=== PATIENT | male | born 1945 | race Two or more races ===

== ENCOUNTER → 2024-05-29 | Outpatient (CLI) | payer MEDICAID ==
[2024-05-29 13:21] LABS: Urine Bacteria None Seen /hpf (None Seen)
[2024-05-29 13:29] LABS: Urine Blood Negative /uL (Negative); Urine Clarity Clear (Clear); Urine Color Colorless (Yellow); Urine Hyaline Cast FEW /lpf (0 - 2); Urine Protein, UAD Negative (Negative); Urine Specific Gravity 1.007 (1.001-1.035); Urine Urobilinogen Normal (Negative); Urine WBC 1 /hpf (0 - 3)
[2024-05-29 13:30] LABS: Basophils # (auto) 0 10 ^3/uL (0-0.2); Basophils % (auto) 0.3 % (0.0-2.0); Eosinophils # (auto) 0.3 10 ^3/uL (0-0.8); Eosinophils % (auto) 3.6 % (0.0-7.0); Hematocrit 34.7 % (41.0-53.0); Hemoglobin 11.5 g/dL (13.5-17.5); Lymphocytes # (auto) 1.2 10 ^3/uL (0.4-5.4); Lymphocytes % (auto) 13.8 % (10.0-50.0); Mean Corpuscular Hemoglobin 28.4 pg (28.0-32.0); Mean Corpuscular Hgb Conc. 33.1 g/dL (32.0-36.0); Monocytes # (auto) 0.6 10 ^3/uL (0-1.3); Monocytes % (auto) 6.7 % (0.0-12.0); Neutrophils # (auto) 6.5 10 ^3/uL (1.6-8.6); Neutrophils % (auto) 75.6 % (37.0-80.0); Platelet Count (auto) 191 10^3/uL (140-450); Red Blood Cells 4.04 10^6/uL (4.5-5.90); Red Cell Distribution Width 18.1 % (11.8-14.3); White Blood Cell 8.5 10^3/uL (4.4-10.8)
[2024-05-29 14:12] LABS: Alanine Aminotransferase 17 U/L (7-40); Albumin 4.4 g/dL (3.2-4.8); Alkaline Phosphatase 148 U/L (46-116); Anion Gap 7 (5-15); Aspartate Aminotransferase 10 U/L (13-40); BUN/Creatinine Ratio 15.4 (10.0-20.0); Bilirubin, Total 1.2 mg/dL (0.2-1.0); Blood Urea Nitrogen 21 mg/dL (9-23); Calcium 10.1 mg/dL (8.7-10.4); Carbon Dioxide 24 mmol/L (20-31); Chloride 112 mmol/L (98-107); Cholesterol 91 mg/dL (< 200); Glucose 105 mg/dL (74-106); HDL Cholesterol 45 mg/dL (40-59); LDL Cholesterol 32 mg/dL (< 100); Potassium 4.1 mmol/L (3.5-5.1); Sodium 143 mmol/L (136-145); Total Protein 7.3 g/dL (5.7-8.2); Triglycerides 50 mg/dL (< 150)
[2024-05-29 14:16] LABS: Folate (Folic Acid) 17.56 ng/mL (>5.38)
[2024-05-29 14:30] LABS: Uric Acid 8.5 mg/dL (3.7-9.2)
== END | disposition home or self-care (01) ==
LOC: LAB 13:09
PROVIDERS: ATTEND Internal Medicine
DX: Z00.00 Encounter for general adult medical examination without abnormal findings (principal)
CPT/HCPCS: 36415; 80053; 80061; 81001; 82306; 82607; 82746; 84443; 84550; 85025; 87086

== ENCOUNTER 2024-06-16 17:21 | Inpatient (IN) | payer MEDICAID ==
[~2024-06-16] VITALS: Ht 175.3 cm; Wt 112.4 kg
[~2024-06-16 17:21] MED LIST: AMLO1TAB23 PO; APIX5TAB PO; ATOR80TA PO; FURO40TA4 PO; LOSA-535 PO; METF-372 PO; METO-289 PO; MIRT1TAB38 PO; TAMS0.4C39 PO; VALS40TA2 PO
[2024-06-16 17:30] VITALS: PULSE 65; RESP 24; O2SAT 96
[2024-06-16] MEDS: IPRATROPIUM BROM 0.5 MG/2.5ML INH SOL NEB ONE (17:49)
[2024-06-16] MEDS: ALBUTEROL SULF 2.5 MG/0.5ML(0.5%) NEB SOLN NEB ONE (17:50)
[2024-06-16] MEDS: NITROGLYCERIN 2% OINT 1GM PKG TD ONE (17:55)
[2024-06-16] MEDS: FUROSEMIDE 40 MG/4 ML VIAL IV ONE (17:55)
--- NOTE | 2024-06-16 17:55 | ED.PDOC ---
SOB-HPI HPI Comments 78 y.o male with PMH of DM and CHF, presents to the ED via EMS for a chief complaint of SOB and a productive cough. EMS reported on scene patient was saturating at 70% room air, was placed on a nonrebreather increasing saturation to 88%. Patient was then placed on CPAP 40% and SPO2 read 92-95%. Patient also complains of ongoing bilateral hip pain for unknown amount of time. 2+ pitting edema noted. No chest pain, nausea, vomiting, diarrhea, abdominal pain fever or chils reported. Chief Complaint: Shortness of Breath Time Seen by MD: 17:32 Reviewed notes: Nurses Notes, Noodle Catal[employer] Maker Notes, Medications, Allergies Information Source: Patient, Emergency Med Personnel Mode of Arrival: EMS Severity: Moderate Timing: Hours Duration: Since onset Context: At Rest PE Risk Factors: None Prehospital treatment: 12 Lead EKG, Boots And Shoes Supervisor, C-Pap, Oxygen Modifying Factors: Nothing Associated Signs and Symptoms: Cough If cough with SOB: Productive Past Medical History PAST MEDICAL HISTORY: CAD, CHF, DM Surgical History: Unobtainable Family History Family History: Reviewed,noncontributory to illness Social History Smoker: Non-Smoker Alcohol: Denies ETOH Use Drugs: Denies Drug Use Lives In: Home Constitutional: denies: chills, diaphoresis, fatigue, fever, malaise, sweats, weakness, others EENTM: denies: blurred vision, double vision, ear bleeding, ear discharge, ear drainage, ear pain, ear ringing, eye pain, eye redness, hearing loss, mouth pain, mouth swelling, nasal discharge, nose bleeding, nose congestion, nose pain, photophobia, tearing, throat pain, throat swelling, voice changes, others Respiratory: reports: cough, SOB at rest, shortness of breath, SOB with excertion; denies: hemoptysis, orthopnea, stridor, wheezing, others Cardiovascular: denies: chest pain, dizzy spells, diaphoresis, Dyspnea on exertion, edema, irregular heart beat, left arm pain, lightheadedness, palpitations, PND, syncope, others Gastrointestinal: denies: abdomen distended, abdominal pain, blood streaked bowels, constipated, diarrhea, dysphagia, difficulty swallowing, hematemesis, melena, nausea, poor appetite, poor fluid intake, rectal bleeding, rectal pain, vomiting, others Genitourinary: denies: burning, dysuria, flank pain, frequency, hematuria, incontinence, penile discharge, penile sore, pain, testicle pain, testicle swe lling, urgency, others Neurological: denies: dizziness, fainting, headache, left sided numbness, left sided weakness, numbness, paresthesia, pre-existing deficit, right sided numbness, right sided weakness, seizure, speech problems, tingling, tremors, weakness, others Musculoskeletal: reports: others (Bilateral hip pain ); denies: back pain, gout, joint pain, joint swelling, muscle pain, muscle stiffness, neck pain Integumetry: denies: bruises, change in color, change in hair/nails, dryness, laceration, lesions, lumps, rash, wounds, others Allergic/Immunocompromised: denies: Difficulty Healing, Frequent Infections, Hives, Itching, others Hematologic/Lymphatic: denies: anemia, blood clots, easy bleeding, easy bruising, swollen glands, others Endocrine: denies: excessive hunger, excessive sweating, excessive thirst, excessive urination, flushing, intolerance to cold, intolerance to heat, unexplained weight gain, unexplained weight loss, others Psychiatric: denies: anxiety, bipolar disorder, depression, hopeless, panic disorder, schizophrenia, sleepless, suicidal, others All Other Systems: Reviewed and Negative Physical Exam General Appearance: Moderate Distress HEENT: Normal ENT Inspection Neck: Full Range of Motion, Normal Inspection Respiratory: Accessory Muscle Use, Decreased Breath Sounds, Rales Cardiovascular: No JVD, Regular Rate/Rhythm Breast Exam: Deferred Gastrointestinal: Non Tender, Soft Genitalia: Deferred Pelvic: Deferred Rectal: Deferred Extremities: Calf tenderness, Leg edema, Normal range of motion, Pedal edema Neurologic: Alert, No Motor Deficits, Normal Affect, Normal Mood, No Sensory Deficits Cerebellar Function: NOT DONE Reflexes: NOT DONE Skin: Dry, Normal Color, Warm Lymphatic: NOT DONE EKG EKG : Comments Atrial flutter, ventricular rate 75, QRS prolonged at 153, QTC prolonged at 517, right bundle-branch block, left axis deviation, possible old inferior infarct, anteroseptal T inversion other nonspecific T changes Was a procedure done? Was a procedure done?: No Differential Dx Differential Diagnosis: Asthma, Bronchitis, CHF, COPD, Hyperventilation, Pneumonia, Pulmonary Embolism, Respiratory Distress, URI, Other (Arrhythmia, NE, among) X-Ray, Labs, Meds, VS Vital Signs Date Time Temp Pulse Resp B/P (MAP) Pulse Ox O2 Delivery O2 Flow Rate FiO2 06/16/24 20:43 78 20 130/84 06/16/24 19:51 74 141/71 Facial BiPAP Mask 40 06/16/24 17:55 140/75 06/16/24 17:50 72 140/75 Facial BiPAP Mask 40 06/16/24 17:30 65 24 96 Mechanical Ventilator+ 40 40 06/16/24 17:30 97.9 65 24 140/75 (96) 96 97.9 06/16/24 17:28 75 06/16/24 17:27 97.9 82 22 140/75 (96) 89 Lab Test 06/16/24 19:04 06/16/24 19:00 06/16/24 17:50 Range/Units Troponin I High Sensitivity 20 17 </=54 ng/L Urine Color Colorless Yellow Urine Clarity Clear Clear Urine pH 6.5 5.0-9.0 Urine Specific [place] 1.007 1.001-1.035 Urine Protein Negative Negative Urine Ketones Negative Negative Urine Blood Negative Negative /uL Urine Nitrite Negative Negative Urine Bilirubin Negative Negative Urine Urobilinogen Normal Negative mg/dL Urine Leukocyte Esterase Negative Negative /uL Urine RBC 1 0 - 3 /hpf Urine WBC 1 0 - 3 /hpf Urine Squamous Epithelial Cells Few <5 /hpf Urine Bacteria None seen None Seen /hpf Urine Glucose Normal Normal mg/dL Blood Gas Specimen Type Arterial Blood Gas Sample Site Right radial Blood Gas Patient Temperature 37.0 Arterial Blood Date Drawn [id number] Arterial Blood pH 7.431 7.350-7.450 Arterial Blood Partial Pressure CO2 36.7 35.0-48.0 mmHg Arterial Blood Partial Pressure O2 66.2 L 83.0-108.0 mmHg Arterial Blood HCO3 23.9 21.0-28.0 mmol/L Arterial Blood Oxygen Saturation 92.1 L 94.0-98.0 % Arterial Blood Base Excess -0.1 -2.0-3.0 mmol/L Arterial Blood Oxyhemoglobin 90.5 L 94.0-98.0 % Arterial Blood Carboxyhemoglobin 1.1 0.5-1.5 % Arterial Blood Methemoglobin 0.6 0.0-1.5 % [place] Test Modified Blood Gas Total Hemoglobin 11.70 L 13.5-17.5 g/dL Blood Gas Set Respiration Rate 12.0 Blood Gas Modality Mask - bipap Blood Gas Spontaneous Rate 32 FiO2 % 40.0 Blood Gas Spontaneous Tidal Volume 536 Blood Gas EPAP 7 Blood Gas IPAP 14 White Blood Count 8.7 4.4-10.8 10^3/uL Red Blood Count 4.14 L 4.5-5.90 10^6/uL Hemoglobin 11.7 L 13.5-17.5 g/dL Hematocrit 35.7 L 41.0-53.0 % Mean Corpuscular Volume 86.2 80.0-100.0 fL Mean Corpuscular Hemoglobin 28.3 28.0-32.0 pg Mean Corpuscular Hemoglobin Concent 32.8 32.0-36.0 g/dL Red Cell Distribution Width 17.9 H 11.8-14.3 % Platelet Count 176 140-450 10^3/uL Mean Platelet Volume 8.5 6.9-10.8 fL Neutrophils (%) (Auto) 77.7 37.0-80.0 % Lymphocytes (%) (Auto) 12.6 10.0-50.0 % Monocytes (%) (Auto) 7.0 0.0-12.0 % Eosinophils (%) (Auto) 1.9 0.0-7.0 % Basophils (%) (Auto) 0.8 0.0-2.0 % Neutrophils # (Auto) 6.8 1.6-8.6 10 ^3/uL Lymphocytes # (Auto) 1.1 0.4-5.4 10 ^3/uL Monocytes # (Auto) 0.6 0-1.3 10 ^3/uL Eosinophils # (Auto) 0.2 0-0.8 10 ^3/uL Basophils # (Auto) 0.1 0-0.2 10 ^3/uL Nucleated Red Blood Cells 0.0 % Sodium Level 144 136-145 mmol/L Potassium Level 4.0 3.5-5.1 mmol/L Chloride Level 114 H 98-107 mmol/L Carbon Dioxide Level 24 20-31 mmol/L Anion Gap 6 5-15 Blood Urea Nitrogen 18 9-23 mg/dL Creatinine 1.18 0.700-1.30 mg/dL Glomerular Filtration Rate Calc 64 >90 mL/min BUN/Creatinine Ratio 15.3 10.0-20.0 Serum Glucose 108 H 74-106 mg/dL Calcium Level 10.1 8.7-10.4 mg/dL B-Type Natriuretic Peptide 591.99 0-100 pg/mL Current Medications Medications (Trade) Dose Ordered Sig/Melecio Route Start Time Stop Time Status Last Admin Albuterol (Ventolin Medneb) 5 mg ONCE ONCE NEB 06/16/24 17:45 06/16/24 17:46 DC 06/16/24 17:50 Ipratropium [place] (Atrovent Medneb) 0.5 mg ONCE ONCE NEB 06/16/24 17:45 06/16/24 17:46 DC 06/16/24 17:49 Furosemide (Lasix Injection) 40 mg ONCE ONCE IV 06/16/24 17:45 06/16/24 17:46 DC 06/16/24 17:55 Morphine Sulfate 4 mg ONCE ONCE IV 06/16/24 20:45 06/16/24 20:46 DC 06/16/24 20:43 Ondansetron HCl (Zofran) 4 mg ONCE ONCE IV 06/16/24 20:45 06/16/24 20:46 DC 06/16/24 20:42 HISTORY: pain and edema COMPARISON: None TECHNIQUE: Duplex Doppler evaluation of the deep venous system of the lower extremity from the common femoral veins, superficial femoral vein, great saphenous vein, deep femoral vein, popliteal vein, and calf veins, including color Doppler and spectral/pulsed waveform analysis, was performed. FINDINGS: Right: - Common femoral vein: Compressible - Deep femoral vein: Compressible - Femoral vein: Compressible - Popliteal vein: Compressible - Posterior tibial vein: Waveforms present - Other: Normal appearing groin lymph node. Left: - Common femoral vein: Compressible - Deep femoral vein: Compressible - Femoral vein: Compressible - Popliteal vein: Compressible - Posterior tibial vein: Waveforms present - Other: Normal-appearing groin lymph node. IMPRESSION: 1. No right or left lower extremity deep venous thrombosis. T RADIOGRAPH Indication:sob Technique: Single frontal view of the chest was obtained COMPARISON: None FINDINGS: Lines and Tubes: None Lungs: Diffuse interstitial prominence and patchy increased density. Pleura: Possible small bilateral pleural effusions. No pneumothorax. Cardiomediastinal contours: Cardiomegaly. Bones: Unremarkable IMPRESSION: 1. Suggestion of diffuse interstitial and alveolar pulmonary edema. Can not exclude superimposed pneumonia. 2. Possible small bilateral pleural effusions. X-Ray, Labs, Meds, VS Comment 78-year-old male with a history of diabetes and CHF presenting with shortness breath requiring BiPAP Vitals remarkable for respiratory rate of 24 Exam remarkable for bilateral rales, accessory muscle use, respiratory distress, and 2+ pitting lower extremity edema EKG atrial flutter with ventricular rate 75, prolonged intervals, right bundle- branch block, anteroseptal T inversion Chest x-ray IMPRESSION: 1. Suggestion of diffuse interstitial and alveolar pulmonary edema. Can not exclude superimposed pneumonia. 2. Possible small bilateral pleural effusions. Bilateral lower extremity Doppler ultrasound negative for DVT CBC, basic metabolic panel, UA and 2 serial troponins unremarkable for any abnormality of acute significance BNP 591.99 Nitro paste was applied to the patient's chest wall by EMS prior to arrival. Patient was continued on BiPAP, and received the following in the ED: Albuterol 5 mg/Atrovent 0.5 mg nebulized, Lasix 40 mg IV, morphine 4 mg IV, Zofran 4 mg IV. On re-evaluation, dyspnea had improved, and vitals were stable. Plan is to admit the patient for going respiratory support, diuresis and Cardiology evaluation. Time of 1ST Reevaluation: 17:52 Reevaluation 1ST: Unchanged Time of 2ND Reevaluation: 21:07 Reevaluation 2ND: Improved Patient Education/Counseling: Diagnosis, Treatment, Prognosis Family Education/Counseling: No Family Present Departure 1 Departure Time of Disposition: 21:07 Impression: Primary Impression: CHF exacerbation Qualified Codes: I50.9 - Heart failure, unspecified Additional Impressions: Respiratory failure Qualified Codes: J96.91 - Respiratory failure, unspecified with hypoxia Atrial flutter Qualified Codes: I48.92 - Unspecified atrial flutter Disposition: ADMITTED INPATIENT Admit to: [facility] Condition: Guarded Critical Care Note Critical Care Time?: Yes (45 min-critical care time only) Critical care comment: Critical care time including multiple bedside re-evaluations, review of laboratory and imaging studies, and discussion of the case with the admitting provider. Patient is high risk for respiratory and/or hemodynamic decompensation. Stability Stability form required: No I personally scribed for TITA SCOTT MD ([facility]) on 06/16/24 at 17:55. Electronically submitted by Rula Lloyd ([facility]). I personally scribed for TITA SCOTT MD ([facility]) on 06/16/24 at 18:56. Electronically submitted by Rula Lloyd ([facility]). TITA SCOTT MD Jun 16, 2024 17:55
[2024-06-16 17:58] LABS: Basophils # (auto) 0.1 10 ^3/uL (0-0.2); Basophils % (auto) 0.8 % (0.0-2.0); Eosinophils # (auto) 0.2 10 ^3/uL (0-0.8); Eosinophils % (auto) 1.9 % (0.0-7.0); Hematocrit 35.7 % (41.0-53.0); Hemoglobin 11.7 g/dL (13.5-17.5); Lymphocytes # (auto) 1.1 10 ^3/uL (0.4-5.4); Lymphocytes % (auto) 12.6 % (10.0-50.0); Mean Corpuscular Hemoglobin 28.3 pg (28.0-32.0); Mean Corpuscular Hgb Conc. 32.8 g/dL (32.0-36.0); Mean Corpuscular Volume 86.2 fL (80.0-100.0); Monocytes # (auto) 0.6 10 ^3/uL (0-1.3); Neutrophils # (auto) 6.8 10 ^3/uL (1.6-8.6); Neutrophils % (auto) 77.7 % (37.0-80.0); Platelet Count (auto) 176 10^3/uL (140-450); Red Blood Cells 4.14 10^6/uL (4.5-5.90); Red Cell Distribution Width 17.9 % (11.8-14.3); White Blood Cell 8.7 10^3/uL (4.4-10.8)
[2024-06-16 18:06] LABS: Chloride 114 mmol/L (98-107); Sodium 144 mmol/L (136-145)
[2024-06-16 18:07] LABS: Anion Gap 6 (5-15); Carbon Dioxide 24 mmol/L (20-31)
[2024-06-16 18:08] LABS: Calcium 10.1 mg/dL (8.7-10.4)
[2024-06-16 18:12] LABS: BUN/Creatinine Ratio 15.3 (10.0-20.0); Blood Urea Nitrogen 18 mg/dL (9-23); Glucose 108 mg/dL (74-106)
--- NOTE | 2024-06-16 18:15 | DVH ---
CHEST RADIOGRAPH Indication:sob Technique: Single frontal view of the chest was obtained COMPARISON: None FINDINGS: Lines and Tubes: None Lungs: Diffuse interstitial prominence and patchy increased density. Pleura: Possible small bilateral pleural effusions. No pneumothorax. Cardiomediastinal contours: Cardiomegaly. Bones: Unremarkable IMPRESSION: 1. Suggestion of diffuse interstitial and alveolar pulmonary edema. Can not exclude superimposed pneu monia. 2. Possible small bilateral pleural effusions.
--- NOTE | 2024-06-16 18:40 | DVH ---
HISTORY: pain and edema COMPARISON: None TECHNIQUE: Duplex Doppler evaluation of the deep venous system of the lower extremity from the common femoral veins, superficial femoral vein, great saphenous vein, deep femoral vein, popliteal vein, an d calf veins, including color Doppler and spectral/pulsed waveform analysis, was performed. FINDINGS: Right: - Common femoral vein: Compressible - Deep femoral vein: Compressible - Femoral vein: Compressible - Popliteal vein: Compressible - Posterior tibial vein: Waveforms present - Other: Normal appearing groin lymph node. Left: - Common femoral vein: Compressible - Deep femoral vein: Compressible - Femoral vein: Compressible - Popliteal vein: Compressible - Posterior tibial vein: Waveforms present - Other: Normal-appearing groin lymph node. IMPRESSION: 1. No right or left lower extremity deep venous thrombosis.
[2024-06-16 19:07] LABS: Urine Bacteria None Seen /hpf (None Seen)
[2024-06-16 19:09] LABS: Base Excess -0.1 mmol/L (-2.0-3.0)
[2024-06-16 19:21] LABS: Urine Blood Negative /uL (Negative); Urine Clarity Clear (Clear); Urine Color Colorless (Yellow); Urine Protein, UAD Negative (Negative); Urine Specific Gravity 1.007 (1.001-1.035); Urine Urobilinogen Normal (Negative); Urine WBC 1 /hpf (0 - 3); Urine pH 6.5 (5.0-9.0)
[2024-06-16] MEDS: ONDANSETRON HCL 4 MG/2 ML VIAL IV ONE (20:42)
[2024-06-16] MEDS: MORPHINE SULFATE 4 MG/ML SYR/VIAL IV ONE (20:43)
[2024-06-16] MEDS ORDERED: DEXTROSE (50%) 50ML SYRG IV PRN (21:00)
[2024-06-16] MEDS ORDERED: DOCUSATE SOD 100 MG CAP PO PRN (21:00)
[2024-06-16] MEDS ORDERED: ONDANSETRON HCL 4 MG/2 ML VIAL IV PRN (21:00)
[2024-06-16] MEDS ORDERED: ACETAMINOPHEN 325 MG TAB PO PRN (21:00)
[2024-06-16] MEDS ORDERED: hydrALAZINE HCL 20 MG/ML VL IV PRN (21:00)
[2024-06-16 21:33] VITALS: BP 128/68; PULSE 57; RESP 37; TEMP 97.9; O2SAT 94
[2024-06-16 21:35] VITALS: BP 128/68; PULSE 69; O2SAT 94
[2024-06-16] MEDS: InsuLIN REG 1unit/0.01ml Soln (100units/ml) SC SCH (22:00)
[2024-06-16] MEDS: SODIUM CHLOR 0.9% PF (SALINE LOCK) 10ML VIAL/SYR IV SCH (22:08)
[2024-06-16] MEDS: ACCU-CHEK COMFORT CURVE STRIP VI SCH (22:16)
[2024-06-16] MEDS: ATORVASTATIN 20 MG TAB PO SCH (22:24)
[2024-06-16] MEDS: APIXABAN 5 MG TAB PO SCH (22:24)
[2024-06-16] MEDS: CARVEDILOL 12.5 MG TAB PO SCH (22:24)
--- NOTE | 2024-06-16 23:07 | DVHHP2 ---
History of Present Illness Reason for Visit: Acute exacerbation of congestive heart failure History of Present Illness The patient is a 78-year-old male with past medical history of CHF, Coronary art ayleen disease, DM, hyperlipidemia and hypertension who presented to [facility] ED with complaint of shortness of breaths. Patient reports symptoms progressively get worse with bilateral hip pain, plus two pitting edema, productive cough, desaturating 70% room air, getting worse that prompted this visit. Patient was seen and evaluated in the ED and was placed on non-rebreather increasing O2 saturation to 88%, and was then placed CPAP and O2 saturation improved 92%. Laboratory data shows WBC 8.7, hemoglobin 11.7, hematocrit 35.7, platelets 176, sodium 144, potassium 4.0, BUN 18, creatinine 1.18, glucose 108, troponin 20, BNP 591.99. Chest x-ray revealing diffuse interstitial and alveolar pulmonary edema; can not exclude superimposed pneumonia; possible small bilateral pleural effusions. Patient was started on IV Lasix, please see medication orders section in the computer. On my assessment, patient denied chest pain, no headache, no dizziness, no diaphoresis, currently on CPAP, no nausea, no vomiting, no fever, no chills. Patient was admitted for further evaluation and medical management. Past Medical History CAD, CHF, DM, HTN, HLD. Past Surgical History Denies all surgeries Family History Reviewed, noncontributory to the management of this case. Past Social History The patient lives at home, denies smoking, alcohol or illicit drugs abuse. Review of Systems Constitutional: No: Fever, Chills, Sweats, Weakness, Malaise, Other Eyes: No: Pain, Vision change, Conjunctivae inflammation, Eyelid inflammation, Other, Redness ENT: No: Ear pain, Ear discharge, Nose pain, Nose discharge, Nose congestion, Mouth pain, Mouth swelling, Throat pain, Throat swelling, Other Respiratory: Cough, Shortness of breath, SOB with excertion, Other (SOB at rest); No: Dry, Wheezing, Hemoptysis, Pleuritic Pain, Sputum, Wheezing Cardiovascular: Other (Pitting edema); No: Chest Pain, Palpitations, Orthopnea, Paroxysmal Noc. Dyspnea, Edema, Lt Headedness Gastrointestinal: No: Nausea, Vomiting, Abdominal Pain, Diarrhea, Constipation, Melena, Hematochezia, Other Genitourinary: No Dysuria, No Frequency, No Incontinence, No Hematuria, No Retention, No Other Musculoskeletal: other (Bilateral hip pain); No: neck pain, shoulder pain, arm pain, back pain, hand pain, leg pain, foot pain Skin: No: Rash, Lesions, Jaundice, Bruising, Other Neurological: No: Weakness, Numbness, Incoordination, Change in speech, Confusion, Seizures, Other Allergies: Coded Allergies: NO KNOWN ALLERGIES (Unverified , 06/16/24) Medications Current Medications Medications Dose Ordered Sig/Melecio Route Start Time Stop Time Status Last Admin Dose Admin Albuterol 2.5 mg Q4HPRN PRN NEB 06/16/24 21:00 Ipratropium [place] 0.5 mg Q4HPRN PRN NEB 06/16/24 21:00 Furosemide 40 mg DAILY IV 06/17/24 10:00 Atorvastatin Calcium 20 mg HS PO 06/16/24 22:00 06/16/24 22:24 20 MG Hydralazine HCl 10 mg Q6HP PRN IV 06/16/24 21:00 Carvedilol 12.5 mg Q12HR PO 06/16/24 22:00 06/16/24 22:24 12.5 MG Apixaban 5 mg BID PO 06/16/24 22:00 06/16/24 22:24 5 MG Diagnostic Test (Pha) 1 strip ACHS 06/16/24 22:00 06/16/24 22:16 1 STRIP Insulin Human Regular ACHS SC 06/16/24 22:00 Dextrose 50 ml UD PRN IV 06/16/24 21:00 Sodium Chloride 10 ml Q8HR IV 06/16/24 22:00 06/16/24 22:08 10 ML Acetaminophen/ Hydrocodone Bitart 1 tab Q4HP PRN PO 06/16/24 21:00 Ondansetron HCl 4 mg Q4HP PRN IV 06/16/24 21:00 Docusate Sodium 100 mg BIDPRN PRN PO 06/16/24 21:00 Acetaminophen 650 mg Q6HP PRN PO 06/16/24 21:00 Exam Vital Signs Vital Signs Date Time Temp Pulse Resp B/P (MAP) Pulse Ox O2 Delivery O2 Flow Rate FiO2 06/16/24 22:24 68 116/68 06/16/24 21:20 19 06/16/24 19:51 Facial BiPAP Mask 40 06/16/24 17:30 96 06/16/24 17:30 97.9 97.9 General Appearance: Alert, Oriented X3, Cooperative, No acute distress HEENT: Atraumatic, PERRLA, EOMI, Mucous membr. moist/pink Respiratory: Normal air movement, Other (Diminished breath sounds) Cardiovascular: Regular rate, Normal S1, Normal S2 Abdominal: Normal bowel sounds, Soft, No tenderness, No hepatospenomegaly, No masses Extremities: No clubbing, No cyanosis, Normal pulses, No tenderness/swelling, Other (Pitting edema) Skin: No rashes, No breakdown, No significant lesion Neuro: Normal speech, Normal tone, Sensation intact, Cranial nerves 3-12 NL, Reflexes 2+, Other (Generalized weakness) Psych/Mental Status: Mental status NL, Mood NL Labs/Xrays Labs Test 06/16/24 22:14 06/16/24 21:34 06/16/24 19:00 06/16/24 17:50 Range/Units POC Glucose 87 70-106 mg/dl Troponin I High Sensitivity 22 </=54 ng/L Urine Color Colorless Yellow Urine Clarity Clear Clear Urine pH 6.5 5.0-9.0 Urine Specific [place] 1.007 1.001-1.035 Urine Protein Negative Negative Urine Ketones Negative Negative Urine Blood Negative Negative /uL Urine Nitrite Negative Negative Urine Bilirubin Negative Negative Urine Urobilinogen Normal Negative mg/dL Urine Leukocyte Esterase Negative Negative /uL Urine RBC 1 0 - 3 /hpf Urine WBC 1 0 - 3 /hpf Urine Squamous Epithelial Cells Few <5 /hpf Urine Bacteria None seen None Seen /hpf Urine Glucose Normal Normal mg/dL Blood Gas Specimen Type Arterial Blood Gas Sample Site Right radial Blood Gas Patient Temperature 37.0 Arterial Blood Date Drawn [id number] Arterial Blood pH 7.431 7.350-7.450 Arterial Blood Partial Pressure CO2 36.7 35.0-48.0 mmHg Arterial Blood Partial Pressure O2 66.2 L 83.0-108.0 mmHg Arterial Blood HCO3 23.9 21.0-28.0 mmol/L Arterial Blood Oxygen Saturation 92.1 L 94.0-98.0 % Arterial Blood Base Excess -0.1 -2.0-3.0 mmol/L Arterial Blood Oxyhemoglobin 90.5 L 94.0-98.0 % Arterial Blood Carboxyhemoglobin 1.1 0.5-1.5 % Arterial Blood Methemoglobin 0.6 0.0-1.5 % [place] Test Modified Blood Gas Total Hemoglobin 11.70 L 13.5-17.5 g/dL Blood Gas Set Respiration Rate 12.0 Blood Gas Modality Mask - bipap Blood Gas Spontaneous Rate 32 FiO2 % 40.0 Blood Gas Spontaneous Tidal Volume 536 Blood Gas EPAP 7 Blood Gas IPAP 14 White Blood Count 8.7 4.4-10.8 10^3/uL Red Blood Count 4.14 L 4.5-5.90 10^6/uL Hemoglobin 11.7 L 13.5-17.5 g/dL Hematocrit 35.7 L 41.0-53.0 % Mean Corpuscular Volume 86.2 80.0-100.0 fL Mean Corpuscular Hemoglobin 28.3 28.0-32.0 pg Mean Corpuscular Hemoglobin Concent 32.8 32.0-36.0 g/dL Red Cell Distribution Width 17.9 H 11.8-14.3 % Platelet Count 176 140-450 10^3/uL Mean Platelet Volume 8.5 6.9-10.8 fL Neutrophils (%) (Auto) 77.7 37.0-80.0 % Lymphocytes (%) (Auto) 12.6 10.0-50.0 % Monocytes (%) (Auto) 7.0 0.0-12.0 % Eosinophils (%) (Auto) 1.9 0.0-7.0 % Basophils (%) (Auto) 0.8 0.0-2.0 % Neutrophils # (Auto) 6.8 1.6-8.6 10 ^3/uL Lymphocytes # (Auto) 1.1 0.4-5.4 10 ^3/uL Monocytes # (Auto) 0.6 0-1.3 10 ^3/uL Eosinophils # (Auto) 0.2 0-0.8 10 ^3/uL Basophils # (Auto) 0.1 0-0.2 10 ^3/uL Nucleated Red Blood Cells 0.0 % Sodium Level 144 136-145 mmol/L Potassium Level 4.0 3.5-5.1 mmol/L Chloride Level 114 H 98-107 mmol/L Carbon Dioxide Level 24 20-31 mmol/L Anion Gap 6 5-15 Blood Urea Nitrogen 18 9-23 mg/dL Creatinine 1.18 0.700-1.30 mg/dL Glomerular Filtration Rate Calc 64 >90 mL/min BUN/Creatinine Ratio 15.3 10.0-20.0 Serum Glucose 108 H 74-106 mg/dL Calcium Level 10.1 8.7-10.4 mg/dL B-Type Natriuretic Peptide 591.99 0-100 pg/mL PATIENT: MALU AGEE JR ACCT: [id number] UNIT: [id number] : 1945 LOC: ER ROOM / BED: / AGE / SEX: 78 / M ADM STATUS: REG ER SERVICE 0708 ORDERING PHYSICIAN: TITA CSOTT MD PROCEDURE(s): BLDVT - BiLat Lower DVT REASON: pain and edema ORDER NUMBER(s): [id number], ACCESSION NUMBER(s): [id number] HISTORY: pain and edema COMPARISON: None TECHNIQUE: Duplex Doppler evaluation of the deep venous system of the lower extremity from the common femoral veins, superficial femoral vein, great saphenous vein, deep femoral vein, popliteal vein, and calf veins, including color Doppler and spectral/pulsed waveform analysis, was performed. FINDINGS: Right: - Common femoral vein: Compressible - Deep femoral vein: Compressible - Femoral vein: Compressible - Popliteal vein: Compressible - Posterior tibial vein: Waveforms present - Other: Normal appearing groin lymph node. Left: - Common femoral vein: Compressible - Deep femoral vein: Compressible - Femoral vein: Compressible - Popliteal vein: Compressible - Posterior tibial vein: Waveforms present - Other: Normal-appearing groin lymph node. IMPRESSION: 1. No right or left lower extremity deep venous thrombosis. ORDERING PHYSICIAN: TITA SCOTT MD PROCEDURE(s): CXRP - CHEST PORTABLE REASON: sob ORDER NUMBER(s): [id number], ACCESSION NUMBER(s): [id number] CHEST RADIOGRAPH Indication:sob Technique: Single frontal view of the chest was obtained COMPARISON: None FINDINGS: Lines and Tubes: None Lungs: Diffuse interstitial prominence and patchy increased density. Pleura: Possible small bilateral pleural effusions. No pneumothorax. Cardiomediastinal contours: Cardiomegaly. Bones: Unremarkable IMPRESSION: 1. Suggestion of diffuse interstitial and alveolar pulmonary edema. Can not exclude superimposed pneumonia. 2. Possible small bilateral pleural effusions. Assessment/Plan Assessment/Plan Heart failure, unspecified Acute respiratory failure Pulmonary edema Respiratory failure, unspecified with hypoxia Unspecified atrial flutter Acute exacerbation of congestive heart failure Plan 1. Admit to step-down unit 2. Breathing treatment 3. Pain control management 4. Management of fluids and electrolytes 5. Consultation for Cardiology/pulmonology 6. Diagnostic tests chest x-ray 7. DVT prophylaxis-on Eliquis 8. Repeat labs CBC, CMP in a.m. 9. Continue with current medical management 10. Treatment plan discussed with patient and RN. Patient verbalized understanding. Plan discussed with: Patient, Other (RN) My Orders Orders - SHAGGY SIDDIQUI DNP Procedure Category Date Status Time Consistent DIET 06/17/24 Transmitted Carb(Ccho)Diabetes Breakfast Albuterol Medneb PHA 06/16/24 In Process (Ventolin Medneb) 21:00 Ipratropium Medneb PHA 06/16/24 In Process (Atrovent Medneb) 21:00 Furosemide Injection PHA 06/17/24 In Process (Lasix Injection) 10:00 Atorvastatin (Lipitor) PHA 06/16/24 In Process 22:00 Hydralazine Injection PHA 06/16/24 In Process (Apresoline Inject 21:00 Carvedilol Tablet PHA 06/16/24 In Process (Coreg Tablet) 22:00 Apixaban (Eliquis) PHA 06/16/24 In Process 22:00 Glucose Blood PHA 06/16/24 In Process (Accu-Chek Comfort 22:00 Insulin R (Human) PHA 06/16/24 In Process (Insulin R) 22:00 Dextrose 50% Syringe PHA 06/16/24 In Process 21:00 Allergies NANCY 06/16/24 In Process 20:56 Code Status CODE 06/16/24 Transmitted 20:56 Sodium Chloride Lock PHA 06/16/24 In Process (Saline Lock Ns) 22:00 Oxygen Per Hour RT 06/16/24 Transmitted 20:56 Hydrocodone-Acet PHA 06/16/24 In Process 5/325mg Tab ([place] 21:00 Ondansetron Hcl PHA 06/16/24 In Process (Zofran) 21:00 Docusate Sodium PHA 06/16/24 In Process Capsule (Colace 21:00 Fall Risk Precautions NANCY 06/16/[address] 20:56 Complete Blood Count LAB 06/17/24 Verified 04:00 Comprehensive LAB 06/17/24 Verified Metabolic Panel 04:00 Echo 2d Mode Cardiac US 06/16/24 Logged DOP 20:56 Condition: Serious [facility] 06/16/24 In Process 20:56 Acetaminophen Tablet PHA 06/16/24 In Process (Tylenol Tablet) 21:00 Sequential NANCY 06/16/24 In Process Compression Device Problem List: (1) Heart failure, unspecified (2) Acute respiratory failure (3) Respiratory failure, unspecified with hypoxia (4) Unspecified atrial flutter (5) Pulmonary edema (6) Acute exacerbation of congestive heart failure Date of Service: Jun 16, 2024 Billing Provider: SHAGGY SIDDIQUI DNP Common Visit Codes: [id number] INP/OBS CARE (HIGH) SHAGGY SIDDIQUI DNP Jun 16, 2024 23:07
[2024-06-16] MEDS ORDERED: MORPHINE SULFATE INJ 2 MG/ml SYRG IV PRN (23:15)
[2024-06-16] MEDS ORDERED: NITROGLYCERIN 0.4 MG SL TAB SL PRN (23:15)
[2024-06-16 23:25] VITALS: PULSE 70; RESP 21; O2SAT 93
[2024-06-17] VITALS (9 sets, daily range): BP systolic 108–126; BP diastolic 53–64; PULSE 38–156; RESP 13–25; O2SAT 91–96
[2024-06-17] MEDS: ALBUTEROL SULF 2.5 MG/0.5ML(0.5%) NEB SOLN NEB PRN (01:14)
[2024-06-17] MEDS: IPRATROPIUM BROM 0.5 MG/2.5ML INH SOL NEB PRN (01:14)
[2024-06-17] MEDS: DOPamine 1600MCG/ML D5W 250 ML IV SCH (03:57)
[2024-06-17] MEDS: LORazepam 0.5 MG TAB PO ONE (05:00)
[2024-06-17 06:11] LABS: Basophils # (auto) 0 10 ^3/uL (0-0.2); Basophils % (auto) 0.4 % (0.0-2.0); Eosinophils # (auto) 0.3 10 ^3/uL (0-0.8); Eosinophils % (auto) 4.5 % (0.0-7.0); Hematocrit 34.7 % (41.0-53.0); Hemoglobin 11.4 g/dL (13.5-17.5); Lymphocytes # (auto) 1.3 10 ^3/uL (0.4-5.4); Lymphocytes % (auto) 17.8 % (10.0-50.0); Mean Corpuscular Hemoglobin 28.5 pg (28.0-32.0); Mean Corpuscular Hgb Conc. 32.8 g/dL (32.0-36.0); Mean Corpuscular Volume 86.9 fL (80.0-100.0); Monocytes # (auto) 0.6 10 ^3/uL (0-1.3); Monocytes % (auto) 8.1 % (0.0-12.0); Neutrophils # (auto) 5.1 10 ^3/uL (1.6-8.6); Neutrophils % (auto) 69.2 % (37.0-80.0); Nucleated Red Blood Cells % 0.1 %; Platelet Count (auto) 172 10^3/uL (140-450); Red Blood Cells 3.99 10^6/uL (4.5-5.90); Red Cell Distribution Width 17.9 % (11.8-14.3); White Blood Cell 7.3 10^3/uL (4.4-10.8)
[2024-06-17 06:13] LABS: Alanine Aminotransferase 16 U/L (7-40); Alkaline Phosphatase 145 U/L (46-116); Anion Gap 6 (5-15); BUN/Creatinine Ratio 14.4 (10.0-20.0); Blood Urea Nitrogen 18 mg/dL (9-23); Carbon Dioxide 26 mmol/L (20-31); Chloride 112 mmol/L (98-107); Glucose 119 mg/dL (74-106); Potassium 3.9 mmol/L (3.5-5.1); Sodium 144 mmol/L (136-145)
[2024-06-17 06:14] LABS: Albumin 4.3 g/dL (3.2-4.8); Aspartate Aminotransferase 15 U/L (13-40)
[2024-06-17 06:15] LABS: Bilirubin, Total 1.1 mg/dL (0.2-1.0); Total Protein 6.8 g/dL (5.7-8.2)
[2024-06-17] MEDS ORDERED: FUROSEMIDE 40 MG/4 ML VIAL IV SCH (10:00)
--- NOTE | 2024-06-17 11:27 | DVHINCON2 ---
Date Seen: Jun 17, 2024 Referring Physician MD Benito Reason for Consultation A-flutter History of Present Illness This is a 78-year-old man who presented to the emergency room via EMS with a chief complaint of shortness of breath for two weeks. The patient is somewhat a poor historian, complains of progressive shortness of breath associated with a productive cough with yellow/green sputum and PND. He also complains of right hip pain. He was found with O2 saturations in the 70s% by EMS for which he was placed initially on O2 via NRB mask at 6 LPM and subsequently on CPAP with improved O2 saturations. States he is wheelchair-bound and do not ambulate. At time of assessment, there was noticeable muscle accessory use as well as BLE pitting edema and found on a dopamine drip given bradycardiac events. Denies chest pain, palpitations, diaphoresis, or syncopal events. He underwent a 12 lead electrocardiogram revealing an atrial flutter rhythm at a controlled rate with an associated right bundle branch block and ST-segment depression to john septal leads. Significant medical history includes congestive heart failure, coronary artery disease without cardiac interventions or stent placement, suspected history of chronic tachyarrhythmias as patient is on Eliquis therapy, hypertension, dyslipidemia, [id number] diabetes mellitus, cerebrovascular accident with left-sided hemiparesis in 2011, benign prostatic hyperplasia, wheelchair status, remote history of smoking, and obesity. Past Medical History Past medical history reviewed. No other significant than mentioned above. Past Surgical History Lower back Family History Family history reviewed. Social History Denies the use of illicit drugs, alcohol, or tobacco use. Allergies: Coded Allergies: NO KNOWN ALLERGIES (Unverified , 06/16/24) Home Meds Home medications reviewed. Current Medications Current Medications Medications (Trade) Dose Ordered Sig/Melecio Route PRN Reason Start Time Stop Time Status Last Admin Albuterol (Ventolin Medneb) 2.5 mg Q4HPRN PRN NEB SHORTNESS OF BREATH 06/16/24 21:00 06/17/24 05:48 Ipratropium [place] (Atrovent Medneb) 0.5 mg Q4HPRN PRN NEB SHORTNESS OF BREATH 06/16/24 21:00 06/17/24 05:48 Furosemide (Lasix Injection) 40 mg DAILY IV 06/17/24 10:00 Atorvastatin Calcium (Lipitor) 20 mg HS PO 06/16/24 22:00 06/16/24 22:24 Hydralazine HCl (Apresoline Injection) 10 mg Q6HP PRN IV SBP>150 06/16/24 21:00 Carvedilol (Coreg Tablet) 12.5 mg Q12HR PO 06/16/24 22:00 06/16/24 22:24 Apixaban (Eliquis) 5 mg BID PO 06/16/24 22:00 06/16/24 22:24 Diagnostic Test (Pha) (Accu-Chek Comfort Curve T) 1 strip ACHS 06/16/24 22:00 06/17/24 06:51 Insulin Human Regular (InsuLIN R) ACHS SC 06/16/24 22:00 Dextrose 50 ml UD PRN IV Blood Sugar LESS THAN 60 06/16/24 21:00 Sodium Chloride (Saline Lock Ns) 10 ml Q8HR IV 06/16/24 22:00 06/17/24 06:17 Acetaminophen/ Hydrocodone Bitart ([place] 5/325MG Tab) 1 tab Q4HP PRN PO MODERATE PAIN (4-6 PAIN SCALE) 06/16/24 21:00 Ondansetron HCl (Zofran) 4 mg Q4HP PRN IV NAUSEA / VOMITING 06/16/24 21:00 Docusate Sodium (Colace Capsule) 100 mg BIDPRN PRN PO FOR CONSTIPATION 06/16/24 21:00 Acetaminophen (Tylenol Tablet) 650 mg Q6HP PRN PO PAIN SCALE 1-3 OR TEMP>100.4 06/16/24 21:00 Nitroglycerin (Ntrostat Sublingual) 0.4 mg Q5MINP PRN SL FOR CHEST PAIN 06/16/24 23:15 Morphine Sulfate 2 mg Q30M PRN IV FOR CHEST PAIN 06/16/24 23:15 Dopamine HCl/ Dextrose 250 ml @ 19.5 mls/hr [id number] IV 06/17/24 03:45 06/17/24 03:57 Review of Systems Constitutional: No symptom reported Ears, Nose, & Throat: No symptom reported Eyes: No symptom reported Neurological: No symptoms reported Pulmonary/Respiratory: SOB, productive cough Cardiovascular: No symptom reported Gastrointestinal: No symptom reported Genitourinary: No symptom reported Musculoskeletal: Right hip pain Skin: No symptom reported Psychiatric: No symptom reported Endocrine: No symptom reported Hemotologic/Lymphatic: No symptom reported Vital Signs Vital Signs Date Time Temp Pulse Resp B/P (MAP) Pulse Ox O2 Delivery O2 Flow Rate FiO2 06/17/24 10:06 93 Bi-pap/CPAP 06/17/24 10:06 8 60 60 06/17/24 10:00 107/60 06/17/24 10:00 74 06/17/24 07:20 13 06/16/24 23:22 97.9 97.9 Physical Exam General Appearance: Lethargic. Poor historian. Obese. Moderate respiratory distress Head Exam: Normal inspection Neck Exam: Normal inspection. Non-tender. Normal alignment Pulmonary/Respiratory: Crackles to bilateral breath sounds. Tachypnea. Mastoid accessory use Cardiovascular/Chest: Regular rate and rhythm. S1, S2. Atrial flutter, controlled rate. Crescendo decrescendo systolic murmur V/ with radiation to bilateral ICAs. Peripheral Pulses: 2+ Radial (R). 2+ Radial (L). 2+ Pedal (R). 2+ Pedal (L) Abdominal Exam: Normal bowel sounds. Soft. Nontender. Ankle Exam: Positive ankle edema Lower extremities: Positive lower extremity pitting edema, 3+ Neuro/Mental Status: A&O x2-3. Poor historian. Slurred speech. Left-sided hemiparesis Thoughts/Psych: Normal thought pattern. Poor historian Appearance: In no acute distress Skin Exam: Normal inspection. Normal color. Warm. Dry Labs/Diagnostic Data Labs Test 06/17/24 06:49 06/17/24 05:01 06/16/24 21:34 06/16/24 19:00 Range/Units POC Glucose 130 H 70-106 mg/dl White Blood Count 7.3 4.4-10.8 10^3/uL Red Blood Count 3.99 L 4.5-5.90 10^6/uL Hemoglobin 11.4 L 13.5-17.5 g/dL Hematocrit 34.7 L 41.0-53.0 % Mean Corpuscular Volume 86.9 80.0-100.0 fL Mean Corpuscular Hemoglobin 28.5 28.0-32.0 pg Mean Corpuscular Hemoglobin Concent 32.8 32.0-36.0 g/dL Red Cell Distribution Width 17.9 H 11.8-14.3 % Platelet Count 172 140-450 10^3/uL Mean Platelet Volume 8.8 6.9-10.8 fL Neutrophils (%) (Auto) 69.2 37.0-80.0 % Lymphocytes (%) (Auto) 17.8 10.0-50.0 % Monocytes (%) (Auto) 8.1 0.0-12.0 % Eosinophils (%) (Auto) 4.5 0.0-7.0 % Basophils (%) (Auto) 0.4 0.0-2.0 % Neutrophils # (Auto) 5.1 1.6-8.6 10 ^3/uL Lymphocytes # (Auto) 1.3 0.4-5.4 10 ^3/uL Monocytes # (Auto) 0.6 0-1.3 10 ^3/uL Eosinophils # (Auto) 0.3 0-0.8 10 ^3/uL Basophils # (Auto) 0 0-0.2 10 ^3/uL Nucleated Red Blood Cells 0.1 % Sodium Level 144 136-145 mmol/L Potassium Level 3.9 3.5-5.1 mmol/L Chloride Level 112 H 98-107 mmol/L Carbon Dioxide Level 26 20-31 mmol/L Anion Gap 6 5-15 Blood Urea Nitrogen 18 9-23 mg/dL Creatinine 1.25 0.700-1.30 mg/dL Glomerular Filtration Rate Calc 59 >90 mL/min BUN/Creatinine Ratio 14.4 10.0-20.0 Serum Glucose 119 H 74-106 mg/dL Calcium Level 10.0 8.7-10.4 mg/dL Total Bilirubin 1.1 H 0.2-1.0 mg/dL Aspartate Amino Transferase (AST) 15 13-40 U/L Alanine Aminotransferase (ALT) 16 7-40 U/L Alkaline Phosphatase 145 H 46-116 U/L Total Protein 6.8 5.7-8.2 g/dL Albumin 4.3 3.2-4.8 g/dL Troponin I High Sensitivity 22 </=54 ng/L Urine Color Colorless Yellow Urine Clarity Clear Clear Urine pH 6.5 5.0-9.0 Urine Specific [place] 1.007 1.001-1.035 Urine Protein Negative Negative Urine Ketones Negative Negative Urine Blood Negative Negative /uL Urine Nitrite Negative Negative Urine Bilirubin Negative Negative Urine Urobilinogen Normal Negative mg/dL Urine Leukocyte Esterase Negative Negative /uL Urine RBC 1 0 - 3 /hpf Urine WBC 1 0 - 3 /hpf Urine Squamous Epithelial Cells Few <5 /hpf Urine Bacteria None seen None Seen /hpf Urine Glucose Normal Normal mg/dL Blood Gas Specimen Type Arterial Blood Gas Sample Site Right radial Blood Gas Patient Temperature 37.0 Arterial Blood Date Drawn [id number] Arterial Blood pH 7.431 7.350-7.450 Arterial Blood Partial Pressure CO2 36.7 35.0-48.0 mmHg Arterial Blood Partial Pressure O2 66.2 L 83.0-108.0 mmHg Arterial Blood HCO3 23.9 21.0-28.0 mmol/L Arterial Blood Oxygen Saturation 92.1 L 94.0-98.0 % Arterial Blood Base Excess -0.1 -2.0-3.0 mmol/L Arterial Blood Oxyhemoglobin 90.5 L 94.0-98.0 % Arterial Blood Carboxyhemoglobin 1.1 0.5-1.5 % Arterial Blood Methemoglobin 0.6 0.0-1.5 % [place] Test Modified Blood Gas Total Hemoglobin 11.70 L 13.5-17.5 g/dL Blood Gas Set Respiration Rate 12.0 Blood Gas Modality Mask - bipap Blood Gas Spontaneous Rate 32 FiO2 % 40.0 Blood Gas Spontaneous Tidal Volume 536 Blood Gas EPAP 7 Blood Gas IPAP 14 Test 06/16/24 17:50 Range/Units B-Type Natriuretic Peptide 591.99 0-100 pg/mL Assessment Acute on chronic decompensated HFrEF Systolic murmur rule out aortic valve disease Likely chronic atrial flutter with transient slow ventricular rate, on Eliquis at home Rule out sick sinus syndrome Hypertension Dyslipidemia [id number]-[id number] diabetes mellitus Hx of CVA with left-sided hemiparesis Wheelchair status Obesity Plan/Recommendation We will continue the following plan/recommendations (Dr. Maravilla): * Echocardiogram to evaluate cardiac function * Dopamine drip for hemodynamic support * Preload reduction as tolerated * NOAC therapy, Eliquis BID * [id number] Score 8. HAS-BLED Score 3. * Repeat 12 lead electrocardiogram * Monitor ECG changes and notify * Pulmonology recommendations Thank you for allowing us to participate in this patient's care. Please call if you have any questions or concerns. Critical care time: 40 min. This medical document was created using an electronic medical record system with voice recognition software and computerized dictation system. Although this document has been carefully reviewed, there might still be some phonetic and typographical errors. Occasional wrong-word or ``sound-alike substitutions may have occurred due to the inherent limitations of voice recognition software. These areas are purely typographical due to imperfections of the software programs and do not reflect any compromise in the patient's medical care. Please read the chart carefully and recognize, using context, where these substitutions have occurred. Plan discussed with: Patient, Other Date of Service: Jun 17, 2024 Billing Provider: CELESTINA MARAVILLA MD Cardiology Common Codes: [id number] CARE 30-74 MIN SARI BARGER [facility] Jun 17, 2024 11:27
[2024-06-17 11:29] LABS: Magnesium 1.4 mg/dL (1.6-2.6)
[2024-06-17] MEDS: FUROSEMIDE 40 MG/4 ML VIAL IV SCH ×2 (13:44→18:06)
[2024-06-17] MEDS: MAGNESIUM SULFATE 1GM/100ML 100 ML IV SCH (15:27)
--- NOTE | 2024-06-17 15:52 | DVHINCON2 ---
Date of service: Jun 17, 2024 Referring Physician JEZ Oliver Reason for Consultation NIPPV management, Dyspnea, Acute hypoxic respiratory failure History of Present Illness 78-year-old man history of CHF, CAD, diabetes mellitus type 2, hyperlipidemia, hypertension who presented with a chief complaint of shortness of breath. He was symptoms of breath gets progressively worse with bilateral hip pain. He notes bilateral lower extremity pitting edema. He notes a productive cough. He was desaturating 70% on room air. He came to the emergency department requiring non-rebreather to maintain his oxygenation at 80%. He was initiated on BiPAP therapy. Pulmonary consultation is called due to acute hypoxic respiratory failure noninvasive positive pressure ventilation management. Review of systems: 14 point review of systems is negative unless otherwise noted above. Past medical history: CAD, CHF, diabetes mellitus type 2, hypertension, hyperlipidemia Past surgical history: None mentioned in prior surgeries. Medications: Reviewed Allergies: No known drug allergies. Family history: No family history of premature CAD. No family history of lung disease Social history: Nonsmoker. No alcohol or illicit drug use. Allergies: Coded Allergies: NO KNOWN ALLERGIES (Unverified , 06/16/24) Current Medications Current Medications Medications (Trade) Dose Ordered Sig/Melecio Route PRN Reason Start Time Stop Time Status Last Admin Albuterol (Ventolin Medneb) 2.5 mg Q4HPRN PRN NEB SHORTNESS OF BREATH 06/16/24 21:00 06/17/24 05:48 Ipratropium [place] (Atrovent Medneb) 0.5 mg Q4HPRN PRN NEB SHORTNESS OF BREATH 06/16/24 21:00 06/17/24 05:48 Furosemide (Lasix Injection) 40 mg DAILY IV 06/17/24 10:00 06/17/24 11:06 DC Atorvastatin Calcium (Lipitor) 20 mg HS PO 06/16/24 22:00 06/16/24 22:24 Hydralazine HCl (Apresoline Injection) 10 mg Q6HP PRN IV SBP>150 06/16/24 21:00 Carvedilol (Coreg Tablet) 12.5 mg Q12HR PO 06/16/24 22:00 06/17/24 11:06 DC 06/16/24 22:24 Apixaban (Eliquis) 5 mg BID PO 06/16/24 22:00 06/17/24 14:51 DC 06/17/24 11:08 Diagnostic Test (Pha) (Accu-Chek Comfort Curve T) 1 strip ACHS 06/16/24 22:00 06/17/24 11:17 Insulin Human Regular (InsuLIN R) ACHS SC 06/16/24 22:00 Dextrose 50 ml UD PRN IV Blood Sugar LESS THAN 60 06/16/24 21:00 Sodium Chloride (Saline Lock Ns) 10 ml Q8HR IV 06/16/24 22:00 06/17/24 13:44 Acetaminophen/ Hydrocodone Bitart ([place] 5/325MG Tab) 1 tab Q4HP PRN PO MODERATE PAIN (4-6 PAIN SCALE) 06/16/24 21:00 Ondansetron HCl (Zofran) 4 mg Q4HP PRN IV NAUSEA / VOMITING 06/16/24 21:00 Docusate Sodium (Colace Capsule) 100 mg BIDPRN PRN PO FOR CONSTIPATION 06/16/24 21:00 Acetaminophen (Tylenol Tablet) 650 mg Q6HP PRN PO PAIN SCALE 1-3 OR TEMP>100.4 06/16/24 21:00 Nitroglycerin (Ntrostat Sublingual) 0.4 mg Q5MINP PRN SL FOR CHEST PAIN 06/16/24 23:15 Morphine Sulfate 2 mg Q30M PRN IV FOR CHEST PAIN 06/16/24 23:15 Dopamine HCl/ Dextrose 250 ml @ 19.5 mls/hr [id number] IV 06/17/24 03:45 06/17/24 15:29 Furosemide (Lasix Injection) 40 mg DAILY IV 06/17/24 13:00 06/17/24 15:15 DC 06/17/24 13:44 Furosemide (Lasix Injection) 40 mg BIDD IV 06/17/24 18:00 Magnesium Sulfate/ Dextrose 100 ml @ 100 mls/hr Q1HR IV 06/17/24 14:00 06/17/24 15:59 06/17/24 15:27 Enoxaparin Sodium (Lovenox) 100 mg Q12HR SC 06/17/24 22:00 Vital Signs Vital Signs Date Time Temp Pulse Resp B/P (MAP) Pulse Ox O2 Delivery O2 Flow Rate FiO2 06/17/24 15:29 117/63 06/17/24 13:22 83 06/17/24 12:30 16 94 11/10/24 10:06 Bi-pap/CPAP 06/17/24 10:06 8 60 60 06/16/24 23:22 97.9 97.9 Physical Exam Gen.: Patient lying in bed in moderate apparent distress. On supplemental oxygen. He is breathing comfortably on room air. Head: Normocephalic, atraumatic Eyes: EOMI/PERRLA. Ears: Normal hearing. Normal anatomy. Neck/trachea: Trachea midline, supple. Nose: Normal external anatomy. Mouth: Moist mucous membranes. Chest: Decreased air entry bilaterally. No wheezing or rhonchi. Cardio vascular: Positive S1, positive S2. Regular rate and rhythm. Abdomen: Positive bowel sounds in all 4 quadrants. Soft, non-tender, non- distended. : Deferred. Rectal: Deferred Skin: Warm, dry. Extremities: 2+ radial pulses bilaterally. No lower extremity edema. Neuro: Awake, alert, oriented x3. No gross motor or sensory deficits. Cranial nerves II through XII intact. Gait not assessed. Labs/Diagnostic Data Labs Test 06/17/24 11:12 06/17/24 05:01 06/16/24 21:34 06/16/24 19:00 Range/Units POC Glucose 125 H 70-106 mg/dl White Blood Count 7.3 4.4-10.8 10^3/uL Red Blood Count 3.99 L 4.5-5.90 10^6/uL Hemoglobin 11.4 L 13.5-17.5 g/dL Hematocrit 34.7 L 41.0-53.0 % Mean Corpuscular Volume 86.9 80.0-100.0 fL Mean Corpuscular Hemoglobin 28.5 28.0-32.0 pg Mean Corpuscular Hemoglobin Concent 32.8 32.0-36.0 g/dL Red Cell Distribution Width 17.9 H 11.8-14.3 % Platelet Count 172 140-450 10^3/uL Mean Platelet Volume 8.8 6.9-10.8 fL Neutrophils (%) (Auto) 69.2 37.0-80.0 % Lymphocytes (%) (Auto) 17.8 10.0-50.0 % Monocytes (%) (Auto) 8.1 0.0-12.0 % Eosinophils (%) (Auto) 4.5 0.0-7.0 % Basophils (%) (Auto) 0.4 0.0-2.0 % Neutrophils # (Auto) 5.1 1.6-8.6 10 ^3/uL Lymphocytes # (Auto) 1.3 0.4-5.4 10 ^3/uL Monocytes # (Auto) 0.6 0-1.3 10 ^3/uL Eosinophils # (Auto) 0.3 0-0.8 10 ^3/uL Basophils # (Auto) 0 0-0.2 10 ^3/uL Nucleated Red Blood Cells 0.1 % Sodium Level 144 136-145 mmol/L Potassium Level 3.9 3.5-5.1 mmol/L Chloride Level 112 H 98-107 mmol/L Carbon Dioxide Level 26 20-31 mmol/L Anion Gap 6 5-15 Blood Urea Nitrogen 18 9-23 mg/dL Creatinine 1.25 0.700-1.30 mg/dL Glomerular Filtration Rate Calc 59 >90 mL/min BUN/Creatinine Ratio 14.4 10.0-20.0 Serum Glucose 119 H 74-106 mg/dL Hemoglobin A1c 5.4 <5.7 % A1C Calcium Level 10.0 8.7-10.4 mg/dL Magnesium Level 1.4 L 1.6-2.6 mg/dL Total Bilirubin 1.1 H 0.2-1.0 mg/dL Aspartate Amino Transferase (AST) 15 13-40 U/L Alanine Aminotransferase (ALT) 16 7-40 U/L Alkaline Phosphatase 145 H 46-116 U/L Total Protein 6.8 5.7-8.2 g/dL Albumin 4.3 3.2-4.8 g/dL Triglycerides Level 66 < 150 mg/dL Cholesterol Level 86 < 200 mg/dL LDL Cholesterol 36 < 100 mg/dL HDL Cholesterol 38 L 40-59 mg/dL Thyroid Stimulating Hormone (TSH) 3.03 0.55-4.78 uIU/mL Troponin I High Sensitivity 22 </=54 ng/L Urine Color Colorless Yellow Urine Clarity Clear Clear Urine pH 6.5 5.0-9.0 Urine Specific [place] 1.007 1.001-1.035 Urine Protein Negative Negative Urine Ketones Negative Negative Urine Blood Negative Negative /uL Urine Nitrite Negative Negative Urine Bilirubin Negative Negative Urine Urobilinogen Normal Negative mg/dL Urine Leukocyte Esterase Negative Negative /uL Urine RBC 1 0 - 3 /hpf Urine WBC 1 0 - 3 /hpf Urine Squamous Epithelial Cells Few <5 /hpf Urine Bacteria None seen None Seen /hpf Urine Glucose Normal Normal mg/dL Blood Gas Specimen Type Arterial Blood Gas Sample Site Right radial Blood Gas Patient Temperature 37.0 Arterial Blood Date Drawn [id number] Arterial Blood pH 7.431 7.350-7.450 Arterial Blood Partial Pressure CO2 36.7 35.0-48.0 mmHg Arterial Blood Partial Pressure O2 66.2 L 83.0-108.0 mmHg Arterial Blood HCO3 23.9 21.0-28.0 mmol/L Arterial Blood Oxygen Saturation 92.1 L 94.0-98.0 % Arterial Blood Base Excess -0.1 -2.0-3.0 mmol/L Arterial Blood Oxyhemoglobin 90.5 L 94.0-98.0 % Arterial Blood Carboxyhemoglobin 1.1 0.5-1.5 % Arterial Blood Methemoglobin 0.6 0.0-1.5 % [place] Test Modified Blood Gas Total Hemoglobin 11.70 L 13.5-17.5 g/dL Blood Gas Set Respiration Rate 12.0 Blood Gas Modality Mask - bipap Blood Gas Spontaneous Rate 32 FiO2 % 40.0 Blood Gas Spontaneous Tidal Volume 536 Blood Gas EPAP 7 Blood Gas IPAP 14 Test 06/16/24 17:50 Range/Units B-Type Natriuretic Peptide 591.99 0-100 pg/mL Assessment Impression: Acute exacerbation of congestive heart failure Acute hypoxic respiratory failure Pulmonary edema Can not rule out underlying pneumonia Atrial flutter Obesity with a BMI of 33.9 Pleural effusion Atelectasis Plan: Chest x-ray imaging report reviewed. Diffuse interstitial opacities. Pulmonary edema. Small bilateral pleural effusions. Ultrasound venous Doppler bilateral lower extremities: No bilateral lower extremity DVT. ABG reviewed. Compensated. On BiPAP with an IPAP of 14, EPAP of seven. FiO2 of 40%. Titrate FiO2 to keep sats above 92%. Continue bronchodilators as needed for shortness of breath. Continue diuresis with Lasix 40 Mg twice daily. Monitor renal function. Monitor electrolytes Supplement as necessary. Monitor ins and outs. Accu-Cheks, insulin sliding scale Obesity, complicates all care. Diet and lifestyle modifications for weight reduction given obesity. DVT prophylaxis. Condition: Critical Prognosis: Poor given multiple comorbidities. Rest of plan per hospitalist and other consultants. A total of 35 minutes of critical care time was spent reviewing the patient record, examining the patient, making a diagnostic and therapeutic plan, discussing this plan with the medical personnel, following up on diagnostic studies and following the patient for clinical stability excluding any and all procedures. At least 50% of this time was spent in direct, [id number] contact. Thank you JEZ Oliver for allowing me to participate in this patient's care. Further recommendations will depend on patient's clinical course. Please do not hesitate to contact me if you have any questions or concerns. This medical document was created using an electronic medical record system with [employer] dictation system. Although this document has been carefully reviewed, there may still be some phonetic and typographical errors. These areas are purely typographical due to imperfections of the software programs, and do not reflect any compromise in the patient's medical care. Plan discussed with: Patient, Other (LINER WORKER) GAVINO VALERIO MD Jun 17, 2024 15:52
--- NOTE | 2024-06-17 16:05 | DVHPN2 ---
Subjective shortness of breath still present and lower extremity swelling Reviewed: Care Plan Changes from previous H/P or p: No Changes Eyes: No Pain, No Vision change, No Conjunctivae inflammation, No Eyelid inflammation, No Other, No Redness ENT: No Ear pain, No Ear discharge, No Nose pain, No Nose discharge, No Nose congestion, No Mouth pain, No Mouth swelling, No Throat pain, No Throat swelling, No Other Cardiovascular: No Chest Pain, No Palpitations, No Orthopnea, No Paroxysmal Noc. Dyspnea, No Edema, No Lt Headedness; Other (Pitting edema) Respiratory: Cough; No Dry; Shortness of breath, SOB with excertion; No Wheezing, No Hemoptysis, No Pleuritic Pain, No Sputum; Other (SOB at rest) Gastrointestinal: No Nausea, No Vomiting, No Abdominal Pain, No Diarrhea, No Constipation, No Melena, No Hematochezia, No Other Genitourinary: No Dysuria, No Frequency, No Incontinence, No Hematuria, No Retention, No Other Musculoskeletal: other (Bilateral hip pain); No neck pain, No shoulder pain, No arm pain, No back pain, No hand pain, No leg pain, No foot pain Skin: No Rash, No Lesions, No Jaundice, No Bruising, No Other Objective Vitals Vital Signs Date Time Temp Pulse Resp B/P (MAP) Pulse Ox O2 Delivery O2 Flow Rate FiO2 06/17/24 15:29 117/63 06/17/24 13:22 83 06/17/24 12:30 16 94 06/17/24 10:06 Bi-pap/CPAP 06/17/24 10:06 8 60 60 06/16/24 23:22 97.9 97.9 General Appearance: Alert, Oriented X3 Abdomen: Normal bowel sounds, Soft Extremities: Other (leg swelling 3+) Medications Current Medications Medications Dose Ordered Sig/Melecio Route Start Time Stop Time Status Last Admin Dose Admin Albuterol 2.5 mg Q4HPRN PRN NEB 06/16/24 21:00 06/17/24 05:48 2.5 MG Ipratropium [place] 0.5 mg Q4HPRN PRN NEB 06/16/24 21:00 06/17/24 05:48 0.5 MG Atorvastatin Calcium 20 mg HS PO 06/16/24 22:00 06/16/24 22:24 20 MG Hydralazine HCl 10 mg Q6HP PRN IV 06/16/24 21:00 Diagnostic Test (Pha) 1 strip ACHS 06/16/24 22:00 06/17/24 11:17 1 STRIP Insulin Human Regular ACHS SC 06/16/24 22:00 Dextrose 50 ml UD PRN IV 06/16/24 21:00 Sodium Chloride 10 ml Q8HR IV 06/16/24 22:00 06/17/24 13:44 10 ML Acetaminophen/ Hydrocodone Bitart 1 tab Q4HP PRN PO 06/16/24 21:00 Ondansetron HCl 4 mg Q4HP PRN IV 06/16/24 21:00 Docusate Sodium 100 mg BIDPRN PRN PO 06/16/24 21:00 Acetaminophen 650 mg Q6HP PRN PO 06/16/24 21:00 Nitroglycerin 0.4 mg Q5MINP PRN SL 06/16/24 23:15 Morphine Sulfate 2 mg Q30M PRN IV 06/16/24 23:15 Dopamine HCl/ Dextrose 250 ml @ 19.5 mls/hr [id number] IV 06/17/24 03:45 06/17/24 15:29 19.5 MLS/HR Furosemide 40 mg BIDD IV 06/17/24 18:00 Enoxaparin Sodium 100 mg Q12HR SC 06/17/24 22:00 Laboratory Results Laboratory Tests 06/17/24 05:01 Chemistry Test 06/16/24 17:50 06/17/24 05:01 Calcium Level 10.1 mg/dL (8.7-10.4) 10.0 mg/dL (8.7-10.4) Albumin 4.3 g/dL (3.2-4.8) Magnesium Level 1.4 mg/dL (1.6-2.6) L Total Protein 6.8 g/dL (5.7-8.2) Lipid panel Test 06/17/24 05:01 Cholesterol Level 86 mg/dL (< 200) HDL Cholesterol 38 mg/dL (40-59) L Triglycerides Level 66 mg/dL (< 150) Cardiac Markers Test 06/16/24 17:50 B-Type Natriuretic Peptide 591.99 pg/mL (0-100) LFT Test 06/17/24 05:01 Alanine Aminotransferase (ALT) 16 U/L (7-40) Alkaline Phosphatase 145 U/L (46-116) H Aspartate Amino Transferase (AST) 15 U/L (13-40) Total Bilirubin 1.1 mg/dL (0.2-1.0) H HgA1c, TSH Test 06/17/24 05:01 Hemoglobin A1c 5.4 % A1C (<5.7) Thyroid Stimulating Hormone (TSH) 3.03 uIU/mL (0.55-4.78) Urinalysis Test 06/16/24 19:00 Urine Color Colorless (Yellow) Urine Clarity Clear (Clear) Urine pH 6.5 (5.0-9.0) Urine Specific [place] 1.007 (1.001-1.035) Urine Protein Negative (Negative) Urine Ketones Negative (Negative) Urine Blood Negative /uL (Negative) Urine Nitrite Negative (Negative) Urine Bilirubin Negative (Negative) Urine Urobilinogen Normal mg/dL (Negative) Urine Leukocyte Esterase Negative /uL (Negative) Urine RBC 1 /hpf (0 - 3) Urine WBC 1 /hpf (0 - 3) Urine Squamous Epithelial Cells Few /hpf (<5) Urine Bacteria None seen /hpf (None Seen) Urine Glucose Normal mg/dL (Normal) Blood Gas Results Test 06/16/24 19:00 Arterial Blood pH 7.431 (7.350-7.450) FiO2 % 40.0 Assessment/Plan Assessment/Plan Heart failure, unspecified Acute respiratory failure Pulmonary edema Respiratory failure, unspecified with hypoxia Unspecified atrial flutter Acute exacerbation of congestive heart failure Plan cardiology consult IV lasix BID IV dopamine drip continues wean off oxygen Plan discussed with: Patient Date of Service: Jun 17, 2024 Billing Provider: ROLLY BURCH MD Common Visit Codes: [id number] INP/OBS CARE(HIGH) ROLLY BURCH MD Jun 17, 2024 16:05
[2024-06-17] MEDS: HYDROcodone-ACET 5/325MG TAB PO PRN (18:08)
[2024-06-17] MEDS: ENOXAPARIN SOD 100 MG/1 ML SYRINGE SC SCH (22:04)
[2024-06-18] VITALS (20 sets, daily range): BP systolic 103–134; BP diastolic 59–79; PULSE 62–103; RESP 12–28; TEMP 97.6–98.9; O2SAT 86–100
[2024-06-18 08:21] LABS: Basophils # (auto) 0 10 ^3/uL (0-0.2); Basophils % (auto) 0.2 % (0.0-2.0); Eosinophils # (auto) 0.3 10 ^3/uL (0-0.8); Eosinophils % (auto) 3.1 % (0.0-7.0); Hematocrit 36.4 % (41.0-53.0); Hemoglobin 11.2 g/dL (13.5-17.5); Lymphocytes # (auto) 0.8 10 ^3/uL (0.4-5.4); Lymphocytes % (auto) 8.1 % (10.0-50.0); Mean Corpuscular Hemoglobin 27.1 pg (28.0-32.0); Mean Corpuscular Hgb Conc. 30.8 g/dL (32.0-36.0); Mean Corpuscular Volume 87.8 fL (80.0-100.0); Monocytes # (auto) 0.7 10 ^3/uL (0-1.3); Monocytes % (auto) 7.1 % (0.0-12.0); Neutrophils % (auto) 81.5 % (37.0-80.0); Platelet Count (auto) 172 10^3/uL (140-450); Red Blood Cells 4.15 10^6/uL (4.5-5.90); Red Cell Distribution Width 18.3 % (11.8-14.3); White Blood Cell 9.8 10^3/uL (4.4-10.8)
[2024-06-18 08:34] LABS: Alanine Aminotransferase 14 U/L (7-40); Albumin 4.3 g/dL (3.2-4.8); Alkaline Phosphatase 148 U/L (46-116); Anion Gap 7 (5-15); Aspartate Aminotransferase 13 U/L (13-40); BUN/Creatinine Ratio 15.7 (10.0-20.0); Blood Urea Nitrogen 26 mg/dL (9-23); Calcium 9.8 mg/dL (8.7-10.4); Carbon Dioxide 26 mmol/L (20-31); Chloride 107 mmol/L (98-107); Glucose 127 mg/dL (74-106); Potassium 4.2 mmol/L (3.5-5.1); Sodium 140 mmol/L (136-145); Total Protein 7.2 g/dL (5.7-8.2)
--- NOTE | 2024-06-18 08:44 | DVHPN2 ---
Consult Progress Note Date Seen: Jun 18, 2024 Subjective Review of Systems: CVS:Normal, RESPIRATORY:Abnormal, NEURO:Normal Other Systems: C/o SOB, improving. No overnight cardiac events reported Objective vital signs Vital Sign Date Time Temp Pulse Resp B/P (MAP) Pulse Ox O2 Delivery O2 Flow Rate FiO2 06/18/24 08:03 93 Oxymizer 6 N/A 06/18/24 08:00 93 18 126/64 (84) 06/18/24 08:00 98.6 98.6 Total Intake and Output 06/17/24 06/17/24 06/18/24 15:00 23:00 07:00 Intake Total 156.0 ml 576.5 ml 396.0 ml Output Total 825 ml 525 ml Balance 156.0 ml -248.5 ml -129.0 ml medications Current Medications Medications Dose Ordered Sig/Melecio Route Start Time Stop Time Status Last Admin Dose Admin Albuterol 2.5 mg Q4HPRN PRN NEB 06/16/24 21:00 06/18/24 04:57 2.5 MG Ipratropium [place] 0.5 mg Q4HPRN PRN NEB 06/16/24 21:00 06/18/24 04:57 0.5 MG Atorvastatin Calcium 20 mg HS PO 06/16/24 22:00 06/17/24 22:04 20 MG Hydralazine HCl 10 mg Q6HP PRN IV 06/16/24 21:00 Diagnostic Test (Pha) 1 strip ACHS 06/16/24 22:00 06/18/24 06:42 1 STRIP Insulin Human Regular ACHS SC 06/16/24 22:00 06/17/24 22:06 2 UNITS Dextrose 50 ml UD PRN IV 06/16/24 21:00 Sodium Chloride 10 ml Q8HR IV 06/16/24 22:00 06/18/24 06:06 10 ML Acetaminophen/ Hydrocodone Bitart 1 tab Q4HP PRN PO 06/16/24 21:00 06/18/24 03:42 1 TAB Ondansetron HCl 4 mg Q4HP PRN IV 06/16/24 21:00 Docusate Sodium 100 mg BIDPRN PRN PO 06/16/24 21:00 Acetaminophen 650 mg Q6HP PRN PO 06/16/24 21:00 Nitroglycerin 0.4 mg Q5MINP PRN SL 06/16/24 23:15 Morphine Sulfate 2 mg Q30M PRN IV 06/16/24 23:15 Dopamine HCl/ Dextrose 250 ml @ 19.5 mls/hr [id number] IV 06/17/24 03:45 06/18/24 05:00 19.5 MLS/HR Furosemide 40 mg BIDD IV 06/17/24 18:00 06/18/24 06:06 40 MG Enoxaparin Sodium 100 mg Q12HR SC 06/17/24 22:00 06/17/24 22:04 100 MG Examination: GENERAL:Abnormal, LUNGS:Abnormal (Coarse, +productive cough), CVS:Abnormal (Systolic murmur V/. ++ BLE edema, improving), NEURO:Abnormal (A&O x 3. Left-sided hemiparesis) laboratory and microbiology Laboratory Tests 06/18/24 05:03 Test 06/18/24 05:03 Range/Units Serum Glucose 127 H 74-106 mg/dL Problem List/Assessment/Plan Problem List/Assessment/Plan Acute on chronic decompensated HFrEF Critical aortic valve stenosis, newly diagnosed Likely chronic atrial flutter with transient slow ventricular rate, on Eliquis at home Rule out sick sinus syndrome Dyslipidemia Tta-jrxjzrm-moxdriotg diabetes mellitus Hx of CVA with left-sided hemiparesis Wheelchair status Obesity Plan/Recommendation (Dr. Maravilla) * Transfer to [facility] for aortic valve replacement * Echocardiogram to evaluate cardiac function * Dopamine drip at set rate for hemodynamic support * Preload reduction as tolerated. Strict I&Os, Fluid restriction * Therapeutic Lovenox. Hold NOAC therapy, Eliquis * [id number] Score 8. HAS-BLED Score 3. * Replete electrolytes, K>4 and Mg>2 * Monitor ECG changes and notify * Pulmonology recommendations * Downgrade to Telemetry * Influenza A&B/COVID-19 Thank you for allowing us to participate in this patient's care. Please call if you have any questions or concerns. Critical care time: 40 min. This medical document was created using an electronic medical record system with voice recognition software and computerized dictation system. Although this document has been carefully reviewed, there might still be some phonetic and typographical errors. Occasional wrong-word or ``sound-alike substitutions may have occurred due to the inherent limitations of voice recognition software. These areas are purely typographical due to imperfections of the software programs and do not reflect any compromise in the patient's medical care. Please read the chart carefully and recognize, using context, where these substitutions have occurred. Plan discussed with: Patient, Other Date of Service: Jun 18, 2024 Billing Provider: CELESTINA MARAVILLA MD Cardiology Common Codes: [id number] CARE 30-74 MIN SARI BARGER [facility] Jun 18, 2024 08:44
[2024-06-18] MEDS: DOPamine 1600MCG/ML D5W 250 ML IV SCH (08:55)
[2024-06-18 08:56] LABS: COVID19 ANTIGEN SOFIA FIA NEGATIVE (NEGATIVE); Rapid Influenza A Negative (Negative); Rapid Influenza B Negative (Negative)
[2024-06-18] MEDS: MAGNESIUM SULFATE 1GM/100ML 100 ML IV ONE (09:02)
--- NOTE | 2024-06-18 09:28 | DVH ---
CHEST RADIOGRAPH Indication:Acute CHF Technique: Single frontal view of the chest was obtained Comparison: XY CHEST PORTABLE on DOS: 06/16/24, XY CHEST PORTABLE on DOS: 06/16/24 FINDINGS: Lines and Tubes: None Lungs: Diffuse interstitial prominence and patchy increased density. Pleura: Possible small bilateral pleural effusions. No pneumothorax. Cardiomediastinal contours: Cardiomegaly. Bones: Unremarkable IMPRESSION: 1. Suggestion of diffuse interstitial and alveolar pulmonary edema. Can not exclude superimposed pneu monia. 2. Possible small bilateral pleural effusions.
--- NOTE | 2024-06-18 09:49 | DVHSR ---
APPROVED REPORT EXAM: LIMITED Two-dimensional and M-mode echocardiogram with Doppler and color Doppler. Blood Pressure: 116/57 mmHg INDICATION CHF Exacerbation, Unspecified RISK FACTORS Obesity: Height: 5' 9", Weight: 229 DIMENSIONS LVDd5.9 (3.8-5.7cm)LA (2D)5.1 (1.9-4.0cm)Aortic Root3.2 (2.0-3.7cm) LVDs5.1 (2.5-4.0cm)LA (MM) (1.9-4.0cm)Aortic Cusp Exc1.2 (1.5-2.0cm) EF (%) 30.0 (55-70%)Rt. Atrium5.5 (1.9-4.0cm)Asc. Aorta cm IVSd1.0 (0.7-1.1cm)RV (D) (1.8-2.4cm) PWd1.1 (0.7-1.1cm) Mitral Valve MitralMitral Stenosis E wave1.10m/sMV Mean GR.mmHg A wave0.50m/sMV Peak GR.mmHg E/A ratio2.22D MVAcm2 Aortic Valve Aortic ValveAortic Stenosis V10.80m/Catherine Mean GR.39mmHg V24.00m/Catherine Peak GR.66mmHg LVOT Diameter2.3 (1.8-2.4cm)Doppler AVA0.83cm2 AI P 1/2 Tfon680.29ms Tricuspid Valve TR Velocity3.70m/s [id number] Other Information Quality : Technically LimitedRhythm : Technically limited study due to body habitus. Conclusion Severely dilated left ventricle. Severely reduced left ventricular systolic function estimated eject ion fraction of 30%. There is global wall hypokinesia. There is grade 2 diastolic dysfunction. Normal right ventricular size and dimension. Normal right ventricular systolic function. Severely e levated right ventricular systolic pressure 65 mm of mercury Normal biatrial size and dimension. There is severe aortic valve stenosis with a peak gradient of 66 and mean gradient of 40 mm of mercur y. Estimated aortic valve area of 0.8 cm2. Aortic valve was trileaflet severely calcific severely t hickened with a reduced excursion of all three leaflets Normal mitral valve structure and function. Normal tricuspid valve structure and function. The pulmonary valve is grossly normal. No pericardial effusion.
--- NOTE | 2024-06-18 11:45 | DVHPN2 ---
Subjective The patient is seen and examined at bedside. No change overnight. Still complain of shortness a breath. BiPAP as needed Reviewed: Care Plan Changes from previous H/P or p: No Changes Eyes: No Pain, No Vision change, No Conjunctivae inflammation, No Eyelid inflammation, No Other, No Redness ENT: No Ear pain, No Ear discharge, No Nose pain, No Nose discharge, No Nose congestion, No Mouth pain, No Mouth swelling, No Throat pain, No Throat swelling, No Other Cardiovascular: No Chest Pain, No Palpitations, No Orthopnea, No Paroxysmal Noc. Dyspnea, No Edema, No Lt Headedness; Other (Pitting edema) Respiratory: Cough; No Dry; Shortness of breath, SOB with excertion; No Wheezing, No Hemoptysis, No Pleuritic Pain, No Sputum; Other (SOB at rest) Gastrointestinal: No Nausea, No Vomiting, No Abdominal Pain, No Diarrhea, No Constipation, No Melena, No Hematochezia, No Other Genitourinary: No Dysuria, No Frequency, No Incontinence, No Hematuria, No Retention, No Other Musculoskeletal: other (Bilateral hip pain); No neck pain, No shoulder pain, No arm pain, No back pain, No hand pain, No leg pain, No foot pain Skin: No Rash, No Lesions, No Jaundice, No Bruising, No Other Objective Vitals Vital Signs Date Time Temp Pulse Resp B/P (MAP) Pulse Ox O2 Delivery O2 Flow Rate FiO2 06/18/24 10:30 82 20 123/62 (82) 95 06/18/24 08:03 Oxymizer 6 N/A 06/18/24 08:00 98.6 98.6 Intake/Output Intake and Output 06/18/24 07:00 Intake Total 1128.5 ml Output Total 1350 ml Balance -221.5 ml Intake Oral 480 ml IV Total 648.5 ml Output Urine Total 1350 ml # Voids 2 General Appearance: Alert, Oriented X3 Abdomen: Normal bowel sounds, Soft Extremities: Other (leg swelling 3+) Medications Current Medications Medications Dose Ordered Sig/Melecio Route Start Time Stop Time Status Last Admin Dose Admin Albuterol 2.5 mg Q4HPRN PRN NEB 06/16/24 21:00 06/18/24 04:57 2.5 MG Ipratropium [place] 0.5 mg Q4HPRN PRN NEB 06/16/24 21:00 06/18/24 04:57 0.5 MG Atorvastatin Calcium 20 mg HS PO 06/16/24 22:00 06/17/24 22:04 20 MG Hydralazine HCl 10 mg Q6HP PRN IV 06/16/24 21:00 Diagnostic Test (Pha) 1 strip ACHS 06/16/24 22:00 06/18/24 11:35 1 STRIP Insulin Human Regular ACHS SC 06/16/24 22:00 06/17/24 22:06 2 UNITS Dextrose 50 ml UD PRN IV 06/16/24 21:00 Sodium Chloride 10 ml Q8HR IV 06/16/24 22:00 06/18/24 06:06 10 ML Acetaminophen/ Hydrocodone Bitart 1 tab Q4HP PRN PO 06/16/24 21:00 06/18/24 03:42 1 TAB Ondansetron HCl 4 mg Q4HP PRN IV 06/16/24 21:00 Docusate Sodium 100 mg BIDPRN PRN PO 06/16/24 21:00 Acetaminophen 650 mg Q6HP PRN PO 06/16/24 21:00 Nitroglycerin 0.4 mg Q5MINP PRN SL 06/16/24 23:15 Morphine Sulfate 2 mg Q30M PRN IV 06/16/24 23:15 Furosemide 40 mg BIDD IV 06/17/24 18:00 06/18/24 06:06 40 MG Enoxaparin Sodium 100 mg Q12HR SC 06/17/24 22:00 06/18/24 10:10 100 MG Dopamine HCl/ Dextrose 250 ml @ 9.75 mls/hr Q24H IV 06/18/24 08:45 06/18/24 08:55 9.75 MLS/HR Laboratory Results Laboratory Tests 06/18/24 05:03 Chemistry Test 06/18/24 05:03 Albumin 4.3 g/dL (3.2-4.8) Calcium Level 9.8 mg/dL (8.7-10.4) Magnesium Level 1.7 mg/dL (1.6-2.6) Total Protein 7.2 g/dL (5.7-8.2) Cardiac Markers Test 06/18/24 05:03 B-Type Natriuretic Peptide 463.61 pg/mL (0-100) LFT Test 06/18/24 05:03 Alanine Aminotransferase (ALT) 14 U/L (7-40) Alkaline Phosphatase 148 U/L (46-116) H Aspartate Amino Transferase (AST) 13 U/L (13-40) Total Bilirubin 1.0 mg/dL (0.2-1.0) Urinalysis Test 06/16/24 19:00 Urine Color Colorless (Yellow) Urine Clarity Clear (Clear) Urine pH 6.5 (5.0-9.0) Urine Specific [place] 1.007 (1.001-1.035) Urine Protein Negative (Negative) Urine Ketones Negative (Negative) Urine Blood Negative /uL (Negative) Urine Nitrite Negative (Negative) Urine Bilirubin Negative (Negative) Urine Urobilinogen Normal mg/dL (Negative) Urine Leukocyte Esterase Negative /uL (Negative) Urine RBC 1 /hpf (0 - 3) Urine WBC 1 /hpf (0 - 3) Urine Squamous Epithelial Cells Few /hpf (<5) Urine Bacteria None seen /hpf (None Seen) Urine Glucose Normal mg/dL (Normal) Labs and/or images reviewed: Labs reviewed by me Assessment/Plan Assessment/Plan Acute Congestive heart failure with exacerbation, unspecified Acute respiratory failure Pulmonary edema Respiratory failure, with hypoxia Atrial flutter Critical aortic valve stenosis, newly diagnosed Plan cardiology consult input appreciated Per eyeletter recommended to transfer to higher level of care for aortic valve replacement. Continuing IV lasix BID Continuing IV dopamine drip continues Continuing oxygen to keep saturation oxygen above 92%. BiPAP as needed. Pulmonology input appreciated Plan discussed with: Other (RN) Date of Service: Jun 18, 2024 Billing Provider: HARINI MINAYA MD Common Visit Codes: [id number] INP/OBS CARE(HIGH) HARINI MINAYA MD Jun 18, 2024 11:45
[2024-06-18] MEDS: FUROSEMIDE 40 MG/4 ML VIAL IV ONE (14:43)
--- NOTE | 2024-06-18 14:43 | ECG ---
[facility] Test Date: 2024-06-16 Test Time: 17:28:41 Pat Name: MALU AGEE Department: er Room: 0204T Gender: M Pearl Cutter: antonia : 1945 Requested By: TITA MILLER Order Number: [id number] Reading MD: Measurements Intervals [place] Rate: 75 P: 0 VT: 0 QRS: -9 QRSD: 153 T: 2 QT: 462 QTc: 517 Interpretive Statements Atrial flutter Right bundle branch block Please click the below link to view image of tracing.
[2024-06-18] MEDS: KETOROLAC TROMETH 30 MG/ML 1ML VIAL IV ONE (14:52)
[2024-06-18] MEDS: IPRATROPIUM BROM 0.5 MG/2.5ML INH SOL ONE (16:18)
[2024-06-18] MEDS: ALBUTEROL SULF 2.5 MG/0.5ML(0.5%) NEB SOLN ONE (16:18)
--- NOTE | 2024-06-18 21:02 | DVHPN2 ---
Progress Note - Dictate Date Seen: Jun 18, 2024 Medical Necessity Reason Pt with a Central, PICC or Fol: No Subjective Patient seen and examined at bedside in [place]. On BiPAP. Overnight events reviewed. vital signs Vital Sign Date Time Temp Pulse Resp B/P (MAP) Pulse Ox O2 Delivery O2 Flow Rate FiO2 06/18/24 20:00 82 12 116/60 (78) 86 06/18/24 20:00 Bi-Pap+ 60 60 06/18/24 18:00 98.9 98.9 06/18/24 14:12 15 Total Intake and Output 06/17/24 06/17/24 06/18/24 15:00 23:00 07:00 Intake Total 156.0 ml 576.5 ml 396.0 ml Output Total 825 ml 525 ml Balance 156.0 ml -248.5 ml -129.0 ml medications Current Medications Medications Dose Ordered Sig/Melecio Route Start Time Stop Time Status Last Admin Dose Admin Albuterol 2.5 mg Q4HPRN PRN NEB 06/16/24 21:00 06/18/24 18:49 2.5 MG Ipratropium [place] 0.5 mg Q4HPRN PRN NEB 06/16/24 21:00 06/18/24 18:49 0.5 MG Atorvastatin Calcium 20 mg HS PO 06/16/24 22:00 06/17/24 22:04 20 MG Hydralazine HCl 10 mg Q6HP PRN IV 06/16/24 21:00 Diagnostic Test (Pha) 1 strip ACHS 06/16/24 22:00 06/18/24 18:10 1 STRIP Insulin Human Regular ACHS SC 06/16/24 22:00 06/17/24 22:06 2 UNITS Dextrose 50 ml UD PRN IV 06/16/24 21:00 Sodium Chloride 10 ml Q8HR IV 06/16/24 22:00 06/18/24 14:03 10 ML Acetaminophen/ Hydrocodone Bitart 1 tab Q4HP PRN PO 06/16/24 21:00 06/18/24 12:48 1 TAB Ondansetron HCl 4 mg Q4HP PRN IV 06/16/24 21:00 Docusate Sodium 100 mg BIDPRN PRN PO 06/16/24 21:00 Acetaminophen 650 mg Q6HP PRN PO 06/16/24 21:00 Nitroglycerin 0.4 mg Q5MINP PRN SL 06/16/24 23:15 Morphine Sulfate 2 mg Q30M PRN IV 06/16/24 23:15 Furosemide 40 mg BIDD IV 06/17/24 18:00 06/18/24 18:09 40 MG Enoxaparin Sodium 100 mg Q12HR SC 06/17/24 22:00 06/18/24 10:10 100 MG Dopamine HCl/ Dextrose 250 ml @ 9.75 mls/hr Q24H IV 06/18/24 08:45 06/18/24 08:55 9.75 MLS/HR objective Gen.: Patient lying in bed in moderate apparent distress. On supplemental oxygen. He is breathing comfortably on room air. Head: Normocephalic, atraumatic Eyes: EOMI/PERRLA. Ears: Normal hearing. Normal anatomy. Neck/trachea: Trachea midline, supple. Nose: Normal external anatomy. Mouth: Moist mucous membranes. Chest: Decreased air entry bilaterally. No wheezing or rhonchi. Cardio vascular: Positive S1, positive S2. Regular rate and rhythm. Abdomen: Positive bowel sounds in all 4 quadrants. Soft, non-tender, non- distended. : Deferred. Rectal: Deferred Skin: Warm, dry. Extremities: 2+ radial pulses bilaterally. No lower extremity edema. Neuro: Awake, alert, oriented x3. No gross motor or sensory deficits. Cranial nerves II through XII intact. Gait not assessed. laboratory and microbiology Laboratory Tests 06/18/24 05:03 Test 06/18/24 05:03 Range/Units Serum Glucose 127 H 74-106 mg/dL Assessment/Plan Impression: Acute exacerbation of congestive heart failure Acute hypoxic respiratory failure Pulmonary edema Can not rule out underlying pneumonia Atrial flutter Obesity with a BMI of 33.9 Pleural effusion Atelectasis Events: Shortness of breath improving. No new complaints. Cardiology recommendations appreciated. Transferred to higher level of care for aortic valve replacement Follow up echocardiogram report. On dopamine drip at set rate for hemodynamic support. Monitor ins and outs. Fluid restriction. On therapeutic Lovenox. Monitor electrolytes. Keep potassium above four Keep magnesium above two Monitor renal function, trending up. Likely due to diuresis. On Lasix 40 mg IV twice daily. Patient is stable from pulmonary standpoint for downgrade to telemetry. Influenza a, B and COVID-19 are negative. Rest of plan as noted below. Plan: Chest x-ray imaging report reviewed. Diffuse interstitial opacities. Pulmonary edema. Small bilateral pleural effusions. Ultrasound venous Doppler bilateral lower extremities: No bilateral lower extremity DVT. ABG reviewed. Compensated. On BiPAP with an IPAP of 14, EPAP of seven. FiO2 of 40%. Titrate FiO2 to keep sats above 92%. Transitioned to supplemental oxygen as tolerated. Continue bronchodilators as needed for shortness of breath. Continue diuresis with Lasix 40 Mg twice daily. Monitor renal function. Monitor electrolytes Supplement as necessary. Monitor ins and outs. Accu-Cheks, insulin sliding scale Obesity, complicates all care. Diet and lifestyle modifications for weight reduction given obesity. DVT prophylaxis. Condition: Critical Prognosis: Poor given multiple comorbidities. Rest of plan per hospitalist and other consultants. A total of 35 minutes of critical care time was spent reviewing the patient record, examining the patient, making a diagnostic and therapeutic plan, discussing this plan with the medical personnel, following up on diagnostic studies and following the patient for clinical stability excluding any and all procedures. At least 50% of this time was spent in direct, [id number] contact. Thank you Dr Kate Cole for allowing me to participate in this patient's care. Further recommendations will depend on patient's clinical course. Please do not hesitate to contact me if you have any questions or concerns. This medical document was created using an electronic medical record system with W[employer] dictation system. Although this document has been carefully reviewed, there may still be some phonetic and typographical errors. These areas are purely typographical due to imperfections of the software programs, and do not reflect any compromise in the patient's medical care. Plan discussed with: Other (RN, ) Critical Care Time(min): 35 GAVINO VALERIO MD Jun 18, 2024 21:02
[2024-06-19] VITALS (69 sets, daily range): BP systolic 110–147; BP diastolic 56–79; PULSE 75–130; RESP 11–29; TEMP 98–99.7; O2SAT 80–99
[2024-06-19 04:55] LABS: Basophils # (auto) 0 10 ^3/uL (0-0.2); Basophils % (auto) 0.2 % (0.0-2.0); Eosinophils # (auto) 0.4 10 ^3/uL (0-0.8); Eosinophils % (auto) 4.4 % (0.0-7.0); Hematocrit 32.4 % (41.0-53.0); Hemoglobin 10.5 g/dL (13.5-17.5); Lymphocytes # (auto) 0.9 10 ^3/uL (0.4-5.4); Lymphocytes % (auto) 11.1 % (10.0-50.0); Mean Corpuscular Hemoglobin 27.9 pg (28.0-32.0); Mean Corpuscular Hgb Conc. 32.3 g/dL (32.0-36.0); Mean Corpuscular Volume 86.4 fL (80.0-100.0); Monocytes # (auto) 0.6 10 ^3/uL (0-1.3); Monocytes % (auto) 7.1 % (0.0-12.0); Neutrophils # (auto) 6.4 10 ^3/uL (1.6-8.6); Neutrophils % (auto) 77.2 % (37.0-80.0); Platelet Count (auto) 158 10^3/uL (140-450); Red Blood Cells 3.75 10^6/uL (4.5-5.90); Red Cell Distribution Width 17.4 % (11.8-14.3); White Blood Cell 8.2 10^3/uL (4.4-10.8)
[2024-06-19 05:14] LABS: Alanine Aminotransferase 12 U/L (7-40); Albumin 3.7 g/dL (3.2-4.8); Alkaline Phosphatase 123 U/L (46-116); Anion Gap 5 (5-15); Aspartate Aminotransferase 17 U/L (13-40); BUN/Creatinine Ratio 19.3 (10.0-20.0); Bilirubin, Total 1.1 mg/dL (0.2-1.0); Blood Urea Nitrogen 26 mg/dL (9-23); Calcium 9.3 mg/dL (8.7-10.4); Carbon Dioxide 29 mmol/L (20-31); Chloride 107 mmol/L (98-107); Glucose 105 mg/dL (74-106); Magnesium 1.6 mg/dL (1.6-2.6); Potassium 3.8 mmol/L (3.5-5.1); Sodium 141 mmol/L (136-145); Total Protein 6.3 g/dL (5.7-8.2)
--- NOTE | 2024-06-19 09:51 | DVHPN2 ---
Consult Progress Note Date Seen: Jun 19, 2024 Subjective Review of Systems: CVS:Normal, RESPIRATORY:Abnormal, NEURO:Normal Other Systems: C/o mild SOB, improving Objective vital signs Vital Sign Date Time Temp Pulse Resp B/P (MAP) Pulse Ox O2 Delivery O2 Flow Rate FiO2 06/19/24 08:00 83 06/19/24 06:14 119/63 06/19/24 06:10 92 Oxymizer 12 N/A 06/19/24 06:00 20 06/19/24 04:00 98.6 98.6 Total Intake and Output 06/18/24 06/18/24 06/19/24 15:00 23:00 07:00 Intake Total 176.375 ml 156.75 ml 308.50 ml Output Total 1000 ml 550 ml 2000 ml Balance -823.625 ml -393.25 ml -1691.50 ml medications Current Medications Medications Dose Ordered Sig/Melecio Route Start Time Stop Time Status Last Admin Dose Admin Albuterol 2.5 mg Q4HPRN PRN NEB 06/16/24 21:00 06/19/24 02:23 2.5 MG Ipratropium [place] 0.5 mg Q4HPRN PRN NEB 06/16/24 21:00 06/19/24 02:23 0.5 MG Atorvastatin Calcium 20 mg HS PO 06/16/24 22:00 06/18/24 21:22 20 MG Hydralazine HCl 10 mg Q6HP PRN IV 06/16/24 21:00 Diagnostic Test (Pha) 1 strip ACHS 06/16/24 22:00 06/19/24 06:25 1 STRIP Insulin Human Regular ACHS SC 06/16/24 22:00 06/17/24 22:06 2 UNITS Dextrose 50 ml UD PRN IV 06/16/24 21:00 Sodium Chloride 10 ml Q8HR IV 06/16/24 22:00 06/19/24 06:07 10 ML Acetaminophen/ Hydrocodone Bitart 1 tab Q4HP PRN PO 06/16/24 21:00 06/18/24 12:48 1 TAB Ondansetron HCl 4 mg Q4HP PRN IV 06/16/24 21:00 Docusate Sodium 100 mg BIDPRN PRN PO 06/16/24 21:00 Acetaminophen 650 mg Q6HP PRN PO 06/16/24 21:00 Nitroglycerin 0.4 mg Q5MINP PRN SL 06/16/24 23:15 Morphine Sulfate 2 mg Q30M PRN IV 06/16/24 23:15 Furosemide 40 mg BIDD IV 06/17/24 18:00 06/19/24 06:14 40 MG Enoxaparin Sodium 100 mg Q12HR SC 06/17/24 22:00 06/18/24 21:22 100 MG Dopamine HCl/ Dextrose 250 ml @ 9.75 mls/hr Q24H IV 06/18/24 08:45 06/19/24 04:25 9.75 MLS/HR Examination: LUNGS:Abnormal (Bilateral crackles, +productive cough), CVS:Abnormal (Systolic murmur. +pitting edema, improving), NEURO:Normal laboratory and microbiology Laboratory Tests 06/19/24 04:31 Test 06/19/24 04:31 Range/Units Serum Glucose 105 74-106 mg/dL Problem List/Assessment/Plan Problem List/Assessment/Plan Acute on chronic decompensated HFrEF Dilated cardiomyopathy with EF of 30%, ?ischemic Critical aortic valve stenosis, newly diagnosed Likely chronic atrial flutter with transient slow ventricular rate, on Eliquis at home Pulmonary hypertension, severe Rule out sick sinus syndrome Dyslipidemia Spv-tbytyzf-exruqkbwh diabetes mellitus Hx of CVA with left-sided hemiparesis Wheelchair status Obesity Plan/Recommendation (Dr. Maravilla) * Transfer to [facility] for aortic valve replacement * Echocardiogram revealed EF 30%. Grade II diastolic dysfunction. RVSP 65 mmHg * Global wall hypokinesia. RHINA 0.8 cm2. Peak gradient 66. Mean gradient 40 mmHg * Dopamine drip at set rate for hemodynamic support * Preload reduction as tolerated. Strict I&Os, Fluid restriction * Therapeutic Lovenox. Hold NOAC therapy, Eliquis * [id number] Score 8. HAS-BLED Score 3. * Replete electrolytes, K>4 and Mg>2 * Monitor ECG changes and notify * Pulmonology recommendations * Initiate ABX prophylaxis. ABG. CXR. BNP level The patient who presented with severe SOB is to be transferred to [facility] for aortic valve replacement and possible cardiac catheterization with coronary angiogram to rule out an ischemic cardiomyopathy. Denies undergoing invasive cardiac procedures in the past. Thank you for allowing us to participate in this patient's care. Please call if you have any questions or concerns. Critical care time: 40 min. This medical document was created using an electronic medical record system with voice recognition software and computerized dictation system. Although this document has been carefully reviewed, there might still be some phonetic and typographical errors. Occasional wrong-word or ``sound-alike substitutions may have occurred due to the inherent limitations of voice recognition software. These areas are purely typographical due to imperfections of the software programs and do not reflect any compromise in the patient's medical care. Please read the chart carefully and recognize, using context, where these substitutions have occurred. Plan discussed with: Patient Date of Service: Jun 19, 2024 Billing Provider: CELESTINA MARAVILLA MD Cardiology Common Codes: [id number] CARE 30-74 MIN SARI BARGER MANAGER BACKGROUND Jun 19, 2024 09:51
[2024-06-19] MEDS: MAGNESIUM SULFATE 1GM/100ML 100 ML IV ONE (10:15)
[2024-06-19] MEDS: cefTRIAXone 1GM/50ML D5W 50 ML IV ONE (10:15)
[2024-06-19] MEDS: POTASSIUM CHL 20 Meq TABLET PO ONE (10:16)
--- NOTE | 2024-06-19 10:22 | DVH ---
CHEST RADIOGRAPH Indication:CHF Technique: Single frontal view of the chest was obtained Comparison: XY CHEST PORTABLE on DOS: 06/18/24, XY CHEST PORTABLE on DOS: 06/16/24, XY CHEST PORTABLE on DOS: 06/18/24 FINDINGS: Lines and Tubes: None Lungs: Diffuse interstitial prominence and patchy increased density. Pleura: Possible small bilateral pleural effusions. No pneumothorax. Cardiomediastinal contours: Cardiomegaly. Bones: Unremarkable IMPRESSION: 1. Suggestion of diffuse interstitial and alveolar pulmonary edema. Can not exclude superimposed pneu monia. 2. Possible small bilateral pleural effusions.
[2024-06-19 10:41] LABS: Base Excess 3.8 mmol/L (-2.0-3.0)
--- NOTE | 2024-06-19 11:15 | ECG ---
[facility] Test Date: 2024-06-17 Test Time: 11:54:05 Pat Name: MALU AGEE Department: ER Room: 0263D Gender: M Leasing Coordinator: DON : 1945 Requested By: SARI BARGER Order Number: [id number] Reading MD: Measurements Intervals [place] Rate: 70 P: 0 AR: 0 QRS: -106 QRSD: 154 T: 41 QT: 456 QTc: 493 Interpretive Statements Atrial flutter RBBB and LAFB Please click the below link to view image of tracing.
[2024-06-19 14:04] LABS: INR 1.11 (0.9-1.15); Partial Thromboplastin Time 36.2 SEC (24.5-34.5); Prothrombin Time 11.7 sec (9.3-11.8)
--- NOTE | 2024-06-19 14:07 | CONS ---
Pharmacy Clinical Information: From [facility] Heart Failure Fallout Report, Ravi Keyshawn Ventura is a 78 year old male with PMH of CHF (LVEF 30%), CAD, DM, HLD, HTN. His home medications for heart failure include metoprolol succinate, losartan, and furosemide. His inpatient medications include furosemide. ACEi/ARB/ARNi, BB, MRA, and SGLT2i are not recommended due to symptomatic aortic stenosis. VIVIANA MELCHOR PHARMACIST Jun 19, 2024 14:07
--- NOTE | 2024-06-19 14:26 | DVHPN2 ---
Subjective Seen and examined at bedside, awaiting transfer to [facility] for TAVR Reviewed: Care Plan Changes from previous H/P or p: No Changes Eyes: No Pain, No Vision change, No Conjunctivae inflammation, No Eyelid inflammation, No Other, No Redness ENT: No Ear pain, No Ear discharge, No Nose pain, No Nose discharge, No Nose congestion, No Mouth pain, No Mouth swelling, No Throat pain, No Throat swelling, No Other Cardiovascular: No Chest Pain, No Palpitations, No Orthopnea, No Paroxysmal Noc. Dyspnea, No Edema, No Lt Headedness; Other (Pitting edema) Respiratory: Cough; No Dry; Shortness of breath, SOB with excertion; No Wheezing, No Hemoptysis, No Pleuritic Pain, No Sputum; Other (SOB at rest) Gastrointestinal: No Nausea, No Vomiting, No Abdominal Pain, No Diarrhea, No Constipation, No Melena, No Hematochezia, No Other Genitourinary: No Dysuria, No Frequency, No Incontinence, No Hematuria, No Retention, No Other Musculoskeletal: other (Bilateral hip pain); No neck pain, No shoulder pain, No arm pain, No back pain, No hand pain, No leg pain, No foot pain Skin: No Rash, No Lesions, No Jaundice, No Bruising, No Other Objective Vitals Vital Signs Date Time Temp Pulse Resp B/P (MAP) Pulse Ox O2 Delivery O2 Flow Rate FiO2 06/19/24 12:15 84 15 131/69 (89) 95 06/19/24 12:00 98.6 98.6 06/19/24 10:00 Oxymizer 12 N/A Intake/Output Intake and Output 06/19/24 07:00 Intake Total 651.375 ml Output Total 3550 ml Balance -2898.625 ml Intake Oral 310 ml IV Total 341.375 ml Output Urine Total 3550 ml General Appearance: Alert, Oriented X3 HEENT: Atraumatic, PERRLA Chest/Breasts: Other (Creps b/l) Cardiovascular: Other (Aortic Stenosis) Abdomen: Normal bowel sounds, Soft Extremities: No edema Medications Current Medications Medications Dose Ordered Sig/Melecio Route Start Time Stop Time Status Last Admin Dose Admin Albuterol 2.5 mg Q4HPRN PRN NEB 06/16/24 21:00 06/19/24 02:23 2.5 MG Ipratropium [place] 0.5 mg Q4HPRN PRN NEB 06/16/24 21:00 06/19/24 02:23 0.5 MG Atorvastatin Calcium 20 mg HS PO 06/16/24 22:00 06/18/24 21:22 20 MG Hydralazine HCl 10 mg Q6HP PRN IV 06/16/24 21:00 Diagnostic Test (Pha) 1 strip ACHS 06/16/24 22:00 06/19/24 12:01 1 STRIP Insulin Human Regular ACHS SC 06/16/24 22:00 06/17/24 22:06 2 UNITS Dextrose 50 ml UD PRN IV 06/16/24 21:00 Sodium Chloride 10 ml Q8HR IV 06/16/24 22:00 06/19/24 06:07 10 ML Acetaminophen/ Hydrocodone Bitart 1 tab Q4HP PRN PO 06/16/24 21:00 06/19/24 11:53 1 TAB Ondansetron HCl 4 mg Q4HP PRN IV 06/16/24 21:00 Docusate Sodium 100 mg BIDPRN PRN PO 06/16/24 21:00 Acetaminophen 650 mg Q6HP PRN PO 06/16/24 21:00 Nitroglycerin 0.4 mg Q5MINP PRN SL 06/16/24 23:15 Morphine Sulfate 2 mg Q30M PRN IV 06/16/24 23:15 Furosemide 40 mg BIDD IV 06/17/24 18:00 06/19/24 06:14 40 MG Enoxaparin Sodium 100 mg Q12HR SC 06/17/24 22:00 06/19/24 10:16 100 MG Dopamine HCl/ Dextrose 250 ml @ 9.75 mls/hr Q24H IV 06/18/24 08:45 06/19/24 04:25 9.75 MLS/HR Ceftriaxone Sodium 50 ml @ 100 mls/hr DAILY@09 IV 06/20/24 09:00 Laboratory Results Laboratory Tests 06/19/24 04:31 Chemistry Test 06/19/24 04:31 Albumin 3.7 g/dL (3.2-4.8) Calcium Level 9.3 mg/dL (8.7-10.4) Magnesium Level 1.6 mg/dL (1.6-2.6) Total Protein 6.3 g/dL (5.7-8.2) Coagulation Test 06/19/24 13:40 Prothrombin Time 11.7 sec (9.3-11.8) Prothrombin Time INR 1.11 (0.9-1.15) Activated Partial Thromboplast Time 36.2 SEC (24.5-34.5) H Cardiac Markers Test 06/19/24 04:31 B-Type Natriuretic Peptide 803.36 pg/mL (0-100) LFT Test 06/19/24 04:31 Alanine Aminotransferase (ALT) 12 U/L (7-40) Alkaline Phosphatase 123 U/L (46-116) H Aspartate Amino Transferase (AST) 17 U/L (13-40) Total Bilirubin 1.1 mg/dL (0.2-1.0) H Urinalysis Test 06/16/24 19:00 Urine Color Colorless (Yellow) Urine Clarity Clear (Clear) Urine pH 6.5 (5.0-9.0) Urine Specific [place] 1.007 (1.001-1.035) Urine Protein Negative (Negative) Urine Ketones Negative (Negative) Urine Blood Negative /uL (Negative) Urine Nitrite Negative (Negative) Urine Bilirubin Negative (Negative) Urine Urobilinogen Normal mg/dL (Negative) Urine Leukocyte Esterase Negative /uL (Negative) Urine RBC 1 /hpf (0 - 3) Urine WBC 1 /hpf (0 - 3) Urine Squamous Epithelial Cells Few /hpf (<5) Urine Bacteria None seen /hpf (None Seen) Urine Glucose Normal mg/dL (Normal) Blood Gas Results Test 06/19/24 10:32 Arterial Blood pH 7.415 (7.350-7.450) FiO2 % 82.0 Assessment/Plan Assessment/Plan Acute Systolic Congestive heart failure with exacerbation-Lasix Acute respiratory failure- On 12L Oxymizer Pulmonary edema Atrial flutter Critical aortic valve stenosis, newly diagnosed- Transfer to [facility] Critical care time 43 mins Plan discussed with: Patient Date of Service: Jun 19, 2024 Billing Provider: ELVIA HERNÁNDEZ MD Common Visit Codes: [id number] CARE 30-74 MIN ELVIA HERNÁNDEZ MD Jun 19, 2024 14:26
--- NOTE | 2024-06-19 16:19 | DVH ---
CHEST RADIOGRAPH Indication:PICC LINE PLACEMENT. Technique: Single frontal view of the chest was obtained Comparison: XY CHEST PORTABLE on DOS: 06/19/24, XY CHEST PORTABLE on DOS: 06/18/24, XY CHEST PORTABLE on DOS: 06/16/24 FINDINGS: Lines and Tubes: PICC line from right arm in place in superior vena cava above the right atrium. Lungs: Increased pulmonary vascular congestion throughout both lung locke with cardiomegaly. Pleura: No effusion. No pneumothorax. Cardiomediastinal contours: Unremarkable Bones: No acute osseous abnormality. IMPRESSION: 1. PICC line from right arm in place in superior vena cava above the right atrium. 2. Findings suggesting failure unchanged from study done 06/19/2024 at 9:46 a.m.
--- NOTE | 2024-06-19 19:42 | DVHPN2 ---
Progress Note - Dictate Date Seen: Jun 19, 2024 Medical Necessity Reason Pt with a Central, PICC or Fol: No Subjective Patient seen and examined at bedside On supplemental oxygen Overnight events reviewed. vital signs Vital Sign Date Time Temp Pulse Resp B/P (MAP) Pulse Ox O2 Delivery O2 Flow Rate FiO2 06/19/24 18:00 84 21 130/75 (93) 96 06/19/24 16:00 99.7 99.7 06/19/24 10:00 Oxymizer 12 N/A Total Intake and Output 06/18/24 06/18/24 06/19/24 15:00 23:00 07:00 Intake Total 176.375 ml 156.75 ml 318.25 ml Output Total 1000 ml 550 ml 2000 ml Balance -823.625 ml -393.25 ml -1681.75 ml medications Current Medications Medications Dose Ordered Sig/Melecio Route Start Time Stop Time Status Last Admin Dose Admin Albuterol 2.5 mg Q4HPRN PRN NEB 06/16/24 21:00 06/19/24 02:23 2.5 MG Ipratropium [place] 0.5 mg Q4HPRN PRN NEB 06/16/24 21:00 06/19/24 02:23 0.5 MG Atorvastatin Calcium 20 mg HS PO 06/16/24 22:00 06/18/24 21:22 20 MG Hydralazine HCl 10 mg Q6HP PRN IV 06/16/24 21:00 Diagnostic Test (Pha) 1 strip ACHS 06/16/24 22:00 06/19/24 17:30 1 STRIP Insulin Human Regular ACHS SC 06/16/24 22:00 06/17/24 22:06 2 UNITS Dextrose 50 ml UD PRN IV 06/16/24 21:00 Sodium Chloride 10 ml Q8HR IV 06/16/24 22:00 06/19/24 15:09 10 ML Acetaminophen/ Hydrocodone Bitart 1 tab Q4HP PRN PO 06/16/24 21:00 06/19/24 11:53 1 TAB Ondansetron HCl 4 mg Q4HP PRN IV 06/16/24 21:00 Docusate Sodium 100 mg BIDPRN PRN PO 06/16/24 21:00 Acetaminophen 650 mg Q6HP PRN PO 06/16/24 21:00 Nitroglycerin 0.4 mg Q5MINP PRN SL 06/16/24 23:15 Morphine Sulfate 2 mg Q30M PRN IV 06/16/24 23:15 Furosemide 40 mg BIDD IV 06/17/24 18:00 06/19/24 17:30 40 MG Enoxaparin Sodium 100 mg Q12HR SC 06/17/24 22:00 06/19/24 10:16 100 MG Ceftriaxone Sodium 50 ml @ 100 mls/hr DAILY@09 IV 06/20/24 09:00 Sodium Chloride 10 ml QSHIFT@ IV 06/19/24 22:00 objective Gen.: Patient lying in bed in moderate apparent distress. On supplemental oxygen. Head: Normocephalic, atraumatic Eyes: EOMI/PERRLA. Ears: Normal hearing. Normal anatomy. Neck/trachea: Trachea midline, supple. Nose: Normal external anatomy. Mouth: Moist mucous membranes. Chest: Decreased air entry bilaterally. No wheezing or rhonchi. Cardio vascular: Positive S1, positive S2. Regular rate and rhythm. Abdomen: Positive bowel sounds in all 4 quadrants. Soft, non-tender, non- distended. : Deferred. Rectal: Deferred Skin: Warm, dry. Extremities: 2+ radial pulses bilaterally. No lower extremity edema. Neuro: Awake, alert, oriented x3. No gross motor or sensory deficits. Cranial nerves II through XII intact. Gait not assessed. laboratory and microbiology Laboratory Tests 06/19/24 04:31 Test 06/19/24 04:31 Range/Units Serum Glucose 105 74-106 mg/dL Assessment/Plan Impression: Acute exacerbation of congestive heart failure Acute hypoxic respiratory failure Pulmonary edema Can not rule out underlying pneumonia Atrial flutter Obesity with a BMI of 33.9 Pleural effusion Atelectasis Events: Shortness of breath improving. On supplemental O2, 12 LPM via Oxymizer Taper O2 as tolerated. BiPAP at night for SHRAVAN. ABG reviewed, compensated. CXR demonstrates diffuse interstitial opacities, small bilateral pleural effusions. No pneumothorax. No fever or chills. WBC is within normal limits. Notes productive cough. Empiric antibiotics PICC line needed for access. Cardiology recommendations appreciated. Transfer to higher level of care for aortic valve replacement Follow up echocardiogram report. On dopamine drip at set rate (2.5 mcg/min) for hemodynamic support. Monitor ins and outs. Fluid restriction. Monitor electrolytes. Keep potassium above 4 Keep magnesium above 2 Monitor renal function, On Lasix 40 mg IV twice daily. Patient is stable from pulmonary standpoint for downgrade to telemetry. Influenza A, B and COVID-19 are negative. On therapeutic Lovenox. Rest of plan as noted below. Plan: Chest x-ray imaging report reviewed. Diffuse interstitial opacities. Pulmonary edema. Small bilateral pleural effusions. Ultrasound venous Doppler bilateral lower extremities: No bilateral lower extremity DVT. ABG reviewed. Compensated. On supplemental O2, 12 LPM via Oxymizer Taper O2 as tolerated. BiPAP at night for SHRAVAN. Continue bronchodilators as needed for shortness of breath. Continue diuresis with Lasix 40 Mg twice daily. Monitor renal function. Monitor electrolytes Supplement as necessary. Monitor ins and outs. Accu-Cheks, insulin sliding scale Obesity, complicates all care. Diet and lifestyle modifications for weight reduction given obesity. DVT prophylaxis. Prognosis: Poor given multiple comorbidities. Rest of plan per hospitalist and other consultants. Thank you Dr Kate Cole for allowing me to participate in this patient's care. Further recommendations will depend on patient's clinical course. Please do not hesitate to contact me if you have any questions or concerns. This medical document was created using an electronic medical record system with [email or web address] dictation system. Although this document has been carefully reviewed, there may still be some phonetic and typographical errors. These areas are purely typographical due to imperfections of the software programs, and do not reflect any compromise in the patient's medical care. Plan discussed with: Patient, Other (RN) GAVINO VALERIO MD Jun 19, 2024 19:42
[2024-06-19] MEDS: LIDOCAINE 1% (LOCAL ANESTH.) PF 5ml SDV ID ONE (20:00)
[2024-06-19] MEDS: SODIUM CHLOR 0.9% PF (SALINE LOCK) 10ML VIAL/SYR IV SCH (21:48)
[2024-06-20] VITALS (26 sets, daily range): BP systolic 97–132; BP diastolic 48–72; PULSE 62–87; RESP 16–29; TEMP 97.8–99.2; O2SAT 89–100
--- NOTE | 2024-06-20 04:59 | DVH ---
CHEST RADIOGRAPH Indication:CHF Technique: Single frontal view of the chest was obtained COMPARISON: XY CHEST PORTABLE on DOS: 06/19/24, XY CHEST PORTABLE on DOS: 06/19/24, XY CHEST PORTABLE on DOS: 06/18/24 FINDINGS: Lines and Tubes: Right PICC in satisfactory position. Lungs: Multifocal airspace disease. Pleura: Small bilateral pleural effusions. No pneumothorax. Cardiomediastinal contours: Unremarkable Bones: Unremarkable IMPRESSION: No significant interval change.
[2024-06-20 05:18] LABS: Basophils # (auto) 0 10 ^3/uL (0-0.2); Basophils % (auto) 0.5 % (0.0-2.0); Eosinophils # (auto) 0.3 10 ^3/uL (0-0.8); Hematocrit 32.4 % (41.0-53.0); Hemoglobin 10.6 g/dL (13.5-17.5); Lymphocytes # (auto) 1.1 10 ^3/uL (0.4-5.4); Lymphocytes % (auto) 15.1 % (10.0-50.0); Mean Corpuscular Hemoglobin 27.8 pg (28.0-32.0); Mean Corpuscular Hgb Conc. 32.5 g/dL (32.0-36.0); Mean Corpuscular Volume 85.5 fL (80.0-100.0); Monocytes # (auto) 0.7 10 ^3/uL (0-1.3); Monocytes % (auto) 9.1 % (0.0-12.0); Neutrophils # (auto) 5.2 10 ^3/uL (1.6-8.6); Neutrophils % (auto) 71.3 % (37.0-80.0); Platelet Count (auto) 147 10^3/uL (140-450); Red Cell Distribution Width 17.7 % (11.8-14.3); White Blood Cell 7.3 10^3/uL (4.4-10.8)
[2024-06-20 05:39] LABS: Albumin 3.5 g/dL (3.2-4.8); Alkaline Phosphatase 115 U/L (46-116); Anion Gap 7 (5-15); Aspartate Aminotransferase 13 U/L (13-40); BUN/Creatinine Ratio 18.8 (10.0-20.0); Blood Urea Nitrogen 22 mg/dL (9-23); Calcium 9.2 mg/dL (8.7-10.4); Carbon Dioxide 28 mmol/L (20-31); Chloride 106 mmol/L (98-107); Glucose 119 mg/dL (74-106); Potassium 3.8 mmol/L (3.5-5.1); Sodium 141 mmol/L (136-145)
[2024-06-20 05:41] LABS: Bilirubin, Total 0.8 mg/dL (0.2-1.0); Total Protein 5.9 g/dL (5.7-8.2)
[2024-06-20 05:53] LABS: Alanine Aminotransferase < 9 U/L (7-40)
[2024-06-20] MEDS: cefTRIAXone 1GM/50ML D5W 50 ML IV SCH (09:09)
--- NOTE | 2024-06-20 14:48 | DVHPNRES ---
Progress Note Date Seen: Jun 20, 2024 Resident Creating Document: MALLY MIRANDA RESIDENT Medical Necessity Reason Pt with a Central, PICC or Fol: No Subjective Review of Systems Keyshawn Rodrigues 78-year-old male patient who presents to ED via EMS with chief complaint of progressive dyspnea from functional class III to functional class IV two weeks before his admission, associated with productive cough with yellow/green phlegm and paroxysmal nocturnal dyspnea. EMS reported oxygen saturation at 70s and required non-rebreather mask in posteriorly CPAP improving saturation, in ED completed 12 lead EKG with evidence atrial flutter moderate ventricular rate and RBBB, presented episodes of bradycardia on telemetry requiring dopamine for 24 hours. Patient is wheelchair-bound. Denies palpitation, syncope, chest pain, nausea, vomiting, diarrhea, recent travel, sick contacts and new motor or sensory deficits. 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 Surgical history: Lumbar laminectomy Family history: Noncontributory Social history remote history of smoking (denies current tobacco, alcohol and other drug abuse Allergies: Denies Home medication: This is a 78-year-old man who presented to the emergency room via EMS with a chief complaint of shortness of breath for two weeks. The patient is somewhat a poor historian, complains of progressive shortness of breath associated with a productive cough with yellow/green sputum and PND. He also complains of right hip pain. He was found with O2 saturations in the 70s% by EMS for which he was placed initially on O2 via NRB mask at 6 LPM and subsequently on CPAP with improved O2 saturations. States he is wheelchair-bound and do not ambulate. At time of assessment, there was noticeable muscle accessory use as well as BLE pitting edema and found on a dopamine drip given bradycardiac events. Denies chest pain, palpitations, diaphoresis, or syncopal events. He underwent a 12 lead electrocardiogram revealing an atrial flutter rhythm at a controlled rate with an associated right bundle branch block and ST-segment depression to anteroseptal leads. Significant medical history includes congestive heart failure, coronary artery disease without cardiac interventions or stent placement, suspected history of chronic tachyarrhythmias as patient is on Eliquis therapy, hypertension, dyslipidemia, npo-dusznsu-yzjxcbqij diabetes mellitus, cerebrovascular accident with left-sided hemiparesis in 2011, benign prostatic hyperplasia, wheelchair status, remote history of smoking, and obesity. Past Medical History Past Medical History Past medical history reviewed. No other significant than mentioned above. Past Surgical History Past Surgical History Lower back Family & Social History Family History Family history reviewed. Social History Denies the use of illicit drugs, alcohol, or tobacco use. Assessment Acute on chronic decompensated HFrEF Systolic murmur rule out aortic valve disease Likely chronic atrial flutter with transient slow ventricular rate, on Eliquis at home Rule out sick sinus syndrome Hypertension Dyslipidemia Moq-ggzbslz-jztrfhbsz diabetes mellitus Hx of CVA with left-sided hemiparesis Wheelchair status Obesity Plan/Recommendation We will continue the following plan/recommendations (Dr. Maravilla): * Echocardiogram to evaluate cardiac function * Dopamine drip for hemodynamic support * Preload reduction as tolerated * NOAC therapy, Eliquis BID * [id number] Score 8. HAS-BLED Score 3. * Repeat 12 lead electrocardiogram * Monitor ECG changes and notify * Pulmonology recommendations Thank you for allowing us to participate in this patient's care. Please call if you have any questions or concerns. Objective vital signs Vital Sign Date Time Temp Pulse Resp B/P (MAP) Pulse Ox O2 Delivery O2 Flow Rate FiO2 06/20/24 12:00 83 06/20/24 10:00 96 Oxymizer 10 N/A 06/20/24 10:00 19 103/48 (66) 06/20/24 08:00 97.8 97.8 Total Intake and Output 06/19/24 06/19/24 06/20/24 15:00 23:00 07:00 Intake Total 278.00 ml 750 ml 300 ml Output Total 2250 ml 1650 ml Balance 278.00 ml -1500 ml -1350 ml medications Current Medications Medications Dose Ordered Sig/Melecio Route Start Time Stop Time Status Last Admin Dose Admin Albuterol 2.5 mg Q4HPRN PRN NEB 06/16/24 21:00 06/19/24 02:23 2.5 MG Ipratropium [place] 0.5 mg Q4HPRN PRN NEB 06/16/24 21:00 06/19/24 02:23 0.5 MG Atorvastatin Calcium 20 mg HS PO 06/16/24 22:00 06/19/24 21:48 20 MG Hydralazine HCl 10 mg Q6HP PRN IV 06/16/24 21:00 Diagnostic Test (Pha) 1 strip ACHS 06/16/24 22:00 06/20/24 11:30 1 STRIP Insulin Human Regular ACHS SC 06/16/24 22:00 06/19/24 21:46 3 UNITS Dextrose 50 ml UD PRN IV 06/16/24 21:00 Sodium Chloride 10 ml Q8HR IV 06/16/24 22:00 06/20/24 06:09 10 ML Acetaminophen/ Hydrocodone Bitart 1 tab Q4HP PRN PO 06/16/24 21:00 06/20/24 06:10 1 TAB Ondansetron HCl 4 mg Q4HP PRN IV 06/16/24 21:00 Docusate Sodium 100 mg BIDPRN PRN PO 06/16/24 21:00 Acetaminophen 650 mg Q6HP PRN PO 06/16/24 21:00 Nitroglycerin 0.4 mg Q5MINP PRN SL 06/16/24 23:15 Morphine Sulfate 2 mg Q30M PRN IV 06/16/24 23:15 Furosemide 40 mg BIDD IV 06/17/24 18:00 06/20/24 06:09 40 MG Enoxaparin Sodium 100 mg Q12HR SC 06/17/24 22:00 06/20/24 09:10 100 MG Ceftriaxone Sodium 50 ml @ 100 mls/hr DAILY@09 IV 06/20/24 09:00 06/20/24 09:09 100 MLS/HR Sodium Chloride 10 ml QSHIFT@ IV 06/19/24 22:00 06/20/24 09:09 10 ML Examination Patient lying in bed, in no acute distress General: Lucid, afebrile, mucosae are moist Cardiovascular: Normal S1 and absent S2. Crescendo decrescendo late peaking systolic murmur best heard in aortic foci. No gallops or rubs Respiratory: Normal ventilation mechanics. Bibasilar rales, rest of auscultation clear. On Oxymizer 10 L Abdomen: Soft, nontender, no organomegaly, normal bowel sounds MSK/skin: Mobilizes 4 limbs. Skin is dry and warm Neurological: Oriented in 3 spheres. No motor no sensitive deficits. Pupils are isocoric and reactive laboratory and microbiology Laboratory Tests 06/20/24 04:47 Test 06/20/24 04:47 Range/Units Serum Glucose 119 H 74-106 mg/dL Problem List/Assessment/Plan Problem List/Assessment/Plan Assessment Acute on chronic decompensated HFrEF Critical aortic stenosis Acute respiratory failure Likely chronic atrial flutter with transient slow ventricular rate, on Eliquis at home Rule out sick sinus syndrome Hypertension Dyslipidemia Eab-xitsstq-uupwearzq diabetes mellitus Hx of CVA with left-sided hemiparesis Wheelchair status Obesity Plan/Recommendation Echocardiogram: LVEF 30%, critical aortic stenosis (RHINA 0.8, mean gradient 40 mmHg), global wall hypokinesia, grade 2 diastolic dysfunction, RVSP 65 mmHg Currently have discontinued dopamine. No new episodes of bradycardia. Have hold GDMT due to symptomatic severe aortic stenosis. Preload reduction as tolerated On therapeutic enoxaparin, hold NOAC ([id number] Score 8. HAS-BLED Score 3). Monitor ECG changes and notify Discussed plan with Dr. Maravilla, patient and nurses: Awaiting transferred to higher level of care for eventual coronary angiography and evaluate aortic valve replacement and requirement of revascularization. Recommend appendage closure if surgical treatment is decided in level of care center. Patient has poor prognosis Plan discussed with: Patient, Other (Nurses) Visit Coding Cardiology RES Date of Service: Jun 20, 2024 Billing Provider: CELESTINA MARAVILLA MD Cardiology Common Codes: 97743-PXH/OBS SAME DATE (High), 59351-[id number] CARE- EACH +30MIN MALLY MIRANDA RESIDENT Jun 20, 2024 14:48
--- NOTE | 2024-06-20 17:07 | DVHPN2 ---
Subjective Seen and examined at bedside, awaiting transfer to [facility] for TAVR still on 10L oxymizer Reviewed: Care Plan Changes from previous H/P or p: No Changes Eyes: No Pain, No Vision change, No Conjunctivae inflammation, No Eyelid inflammation, No Other, No Redness ENT: No Ear pain, No Ear discharge, No Nose pain, No Nose discharge, No Nose congestion, No Mouth pain, No Mouth swelling, No Throat pain, No Throat swelling, No Other Cardiovascular: No Chest Pain, No Palpitations, No Orthopnea, No Paroxysmal Noc. Dyspnea, No Edema, No Lt Headedness; Other (Pitting edema) Respiratory: No Dry; Shortness of breath; No Wheezing, No Hemoptysis, No Pleuritic Pain, No Sputum Gastrointestinal: No Nausea, No Vomiting, No Abdominal Pain, No Diarrhea, No Constipation, No Melena, No Hematochezia, No Other Genitourinary: No Dysuria, No Frequency, No Incontinence, No Hematuria, No Retention, No Other Musculoskeletal: No other, No neck pain, No shoulder pain, No arm pain, No back pain, No hand pain, No leg pain, No foot pain Skin: No Rash, No Lesions, No Jaundice, No Bruising, No Other Objective Vitals Vital Signs Date Time Temp Pulse Resp B/P (MAP) Pulse Ox O2 Delivery O2 Flow Rate FiO2 06/20/24 14:00 80 19 107/61 (76) 99 06/20/24 12:00 98.2 98.2 06/20/24 10:00 Oxymizer 10 N/A Intake/Output Intake and Output 06/20/24 07:00 Intake Total 1328.00 ml Output Total 3900 ml Balance -2572.00 ml Intake Oral 1050 ml IV Total 278.00 ml Output Urine Total 3900 ml # Voids 6 General Appearance: Alert, Oriented X3 HEENT: Atraumatic, PERRLA Chest/Breasts: Other (Creps b/l) Cardiovascular: Other (Aortic Stenosis) Abdomen: Normal bowel sounds, Soft Extremities: No edema Medications Current Medications Medications Dose Ordered Sig/Melecio Route Start Time Stop Time Status Last Admin Dose Admin Albuterol 2.5 mg Q4HPRN PRN NEB 06/16/24 21:00 06/19/24 02:23 2.5 MG Ipratropium [place] 0.5 mg Q4HPRN PRN NEB 06/16/24 21:00 06/19/24 02:23 0.5 MG Atorvastatin Calcium 20 mg HS PO 06/16/24 22:00 06/19/24 21:48 20 MG Hydralazine HCl 10 mg Q6HP PRN IV 06/16/24 21:00 Diagnostic Test (Pha) 1 strip ACHS 06/16/24 22:00 06/20/24 11:30 1 STRIP Insulin Human Regular ACHS SC 06/16/24 22:00 06/19/24 21:46 3 UNITS Dextrose 50 ml UD PRN IV 06/16/24 21:00 Sodium Chloride 10 ml Q8HR IV 06/16/24 22:00 06/20/24 14:00 10 ML Acetaminophen/ Hydrocodone Bitart 1 tab Q4HP PRN PO 06/16/24 21:00 06/20/24 06:10 1 TAB Ondansetron HCl 4 mg Q4HP PRN IV 06/16/24 21:00 Docusate Sodium 100 mg BIDPRN PRN PO 06/16/24 21:00 Acetaminophen 650 mg Q6HP PRN PO 06/16/24 21:00 Nitroglycerin 0.4 mg Q5MINP PRN SL 06/16/24 23:15 Morphine Sulfate 2 mg Q30M PRN IV 06/16/24 23:15 Furosemide 40 mg BIDD IV 06/17/24 18:00 06/20/24 06:09 40 MG Enoxaparin Sodium 100 mg Q12HR SC 06/17/24 22:00 06/20/24 09:10 100 MG Ceftriaxone Sodium 50 ml @ 100 mls/hr DAILY@ IV 06/20/24 09:00 06/20/24 09:09 100 MLS/HR Sodium Chloride 10 ml QSHIFT@ IV 06/19/24 22:00 06/20/24 09:09 10 ML Laboratory Results Laboratory Tests 06/20/24 04:47 Chemistry Test 06/20/24 04:47 Albumin 3.5 g/dL (3.2-4.8) Calcium Level 9.2 mg/dL (8.7-10.4) Total Protein 5.9 g/dL (5.7-8.2) LFT Test 06/20/24 04:47 Alanine Aminotransferase (ALT) < 9 U/L (7-40) Alkaline Phosphatase 115 U/L (46-116) Aspartate Amino Transferase (AST) 13 U/L (13-40) Total Bilirubin 0.8 mg/dL (0.2-1.0) Urinalysis Test 06/16/24 19:00 Urine Color Colorless (Yellow) Urine Clarity Clear (Clear) Urine pH 6.5 (5.0-9.0) Urine Specific [place] 1.007 (1.001-1.035) Urine Protein Negative (Negative) Urine Ketones Negative (Negative) Urine Blood Negative /uL (Negative) Urine Nitrite Negative (Negative) Urine Bilirubin Negative (Negative) Urine Urobilinogen Normal mg/dL (Negative) Urine Leukocyte Esterase Negative /uL (Negative) Urine RBC 1 /hpf (0 - 3) Urine WBC 1 /hpf (0 - 3) Urine Squamous Epithelial Cells Few /hpf (<5) Urine Bacteria None seen /hpf (None Seen) Urine Glucose Normal mg/dL (Normal) Assessment/Plan Assessment/Plan Acute Systolic Congestive heart failure with exacerbation-Lasix Acute respiratory failure- On 10L Oxymizer Pulmonary edema Atrial flutter Critical aortic valve stenosis, newly diagnosed- Transfer to [facility] Plan discussed with: Patient My Orders Orders - ELVIA HERNÁNDEZ MD Procedure Category Date Status Time Respiratory Culture ACACIA 06/20/24 In Process W/ Gs 15:38 Date of Service: Jun 20, 2024 Billing Provider: ELVIA HERNÁNDEZ MD Common Visit Codes: [id number] INP/OBS CARE(HIGH) ELVIA HERNÁNDEZ MD Jun 20, 2024 17:07
[2024-06-21] VITALS (70 sets, daily range): BP systolic 113–141; BP diastolic 47–70; PULSE 63–94; RESP 12–26; TEMP 97.7–99; O2SAT 82–100
[2024-06-21 04:57] LABS: Basophils # (auto) 0 10 ^3/uL (0-0.2); Basophils % (auto) 0.3 % (0.0-2.0); Eosinophils # (auto) 0.4 10 ^3/uL (0-0.8); Eosinophils % (auto) 4.7 % (0.0-7.0); Hematocrit 33.1 % (41.0-53.0); Hemoglobin 10.6 g/dL (13.5-17.5); Lymphocytes # (auto) 1.1 10 ^3/uL (0.4-5.4); Lymphocytes % (auto) 13.3 % (10.0-50.0); Mean Corpuscular Hemoglobin 27.4 pg (28.0-32.0); Mean Corpuscular Hgb Conc. 31.8 g/dL (32.0-36.0); Mean Corpuscular Volume 86.2 fL (80.0-100.0); Monocytes # (auto) 0.9 10 ^3/uL (0-1.3); Neutrophils # (auto) 5.7 10 ^3/uL (1.6-8.6); Neutrophils % (auto) 70.7 % (37.0-80.0); Platelet Count (auto) 160 10^3/uL (140-450); Red Blood Cells 3.85 10^6/uL (4.5-5.90); Red Cell Distribution Width 17.7 % (11.8-14.3)
[2024-06-21 05:06] LABS: Chloride 103 mmol/L (98-107); Potassium 4.2 mmol/L (3.5-5.1); Sodium 141 mmol/L (136-145)
[2024-06-21 05:07] LABS: Anion Gap 8 (5-15); Carbon Dioxide 30 mmol/L (20-31)
[2024-06-21 05:08] LABS: Calcium 9.3 mg/dL (8.7-10.4)
[2024-06-21 05:12] LABS: Glucose 97 mg/dL (74-106)
[2024-06-21 05:13] LABS: BUN/Creatinine Ratio 19.3 (10.0-20.0); Blood Urea Nitrogen 22 mg/dL (9-23)
--- NOTE | 2024-06-21 09:18 | DVHPN2 ---
Consult Progress Note Date Seen: Jun 21, 2024 Subjective Review of Systems: CVS:Normal, RESPIRATORY:Normal, NEURO:Normal Other Systems: C/o lower back pain otherwise cardiac stable Objective vital signs Vital Sign Date Time Temp Pulse Resp B/P (MAP) Pulse Ox O2 Delivery O2 Flow Rate FiO2 06/21/24 08:00 98.1 83 19 121/60 (80) 97 98.1 06/21/24 06:43 Oxymizer 5 46 46 Total Intake and Output 06/20/24 06/20/24 06/21/24 15:00 23:00 07:00 Intake Total 50 ml 300 ml Output Total 1600 ml 1350 ml Balance 50 ml -1600 ml -1050 ml medications Current Medications Medications Dose Ordered Sig/Melecio Route Start Time Stop Time Status Last Admin Dose Admin Albuterol 2.5 mg Q4HPRN PRN NEB 06/16/24 21:00 06/19/24 02:23 2.5 MG Ipratropium [place] 0.5 mg Q4HPRN PRN NEB 06/16/24 21:00 06/19/24 02:23 0.5 MG Atorvastatin Calcium 20 mg HS PO 06/16/24 22:00 06/20/24 21:33 20 MG Hydralazine HCl 10 mg Q6HP PRN IV 06/16/24 21:00 Diagnostic Test (Pha) 1 strip ACHS 06/16/24 22:00 06/20/24 21:36 1 STRIP Insulin Human Regular ACHS SC 06/16/24 22:00 06/20/24 21:35 3 UNITS Dextrose 50 ml UD PRN IV 06/16/24 21:00 Sodium Chloride 10 ml Q8HR IV 06/16/24 22:00 06/21/24 05:43 10 ML Acetaminophen/ Hydrocodone Bitart 1 tab Q4HP PRN PO 06/16/24 21:00 06/20/24 21:42 1 TAB Ondansetron HCl 4 mg Q4HP PRN IV 06/16/24 21:00 Docusate Sodium 100 mg BIDPRN PRN PO 06/16/24 21:00 Acetaminophen 650 mg Q6HP PRN PO 06/16/24 21:00 Nitroglycerin 0.4 mg Q5MINP PRN SL 06/16/24 23:15 Morphine Sulfate 2 mg Q30M PRN IV 06/16/24 23:15 Furosemide 40 mg BIDD IV 06/17/24 18:00 06/21/24 05:43 40 MG Enoxaparin Sodium 100 mg Q12HR SC 06/17/24 22:00 06/20/24 21:34 100 MG Ceftriaxone Sodium 50 ml @ 100 mls/hr DAILY@09 IV 06/20/24 09:00 06/20/24 09:09 100 MLS/HR Sodium Chloride 10 ml QSHIFT@10,22 IV 06/19/24 22:00 06/20/24 21:36 10 ML Examination: LUNGS:Normal, CVS:Abnormal (Systolic murmur V/), NEURO:Normal laboratory and microbiology Laboratory Tests 06/21/24 04:37 Test 06/21/24 04:37 Range/Units Serum Glucose 97 74-106 mg/dL Problem List/Assessment/Plan Problem List/Assessment/Plan Acute on chronic decompensated HFrEF Dilated cardiomyopathy with EF of 30%, ?ischemic Critical aortic valve stenosis, newly diagnosed Likely chronic atrial flutter with transient slow ventricular rate, on Eliquis at home Pulmonary hypertension, severe Rule out sick sinus syndrome Dyslipidemia Vze-hafrogs-swtdphpxz diabetes mellitus Hx of CVA with left-sided hemiparesis Wheelchair status Obesity Plan/Recommendation (Dr. Harmon) * Transfer to [facility] for aortic valve replacement * Echocardiogram revealed EF 30%. Grade II diastolic dysfunction. RVSP 65 mmHg * Global wall hypokinesia. RHINA 0.8 cm2. Peak gradient 66. Mean gradient 40 mmHg * Preload reduction. Strict I&Os, Fluid restriction * Therapeutic Lovenox. Hold NOAC therapy, Eliquis * [id number] Score 8. HAS-BLED Score 3. * Replete electrolytes, K>4 and Mg>2 * Monitor ECG changes and notify * Pulmonology recommendations * Repeat Mg and BNP levels Discussed plan with Dr. Harmon, patient and nurses: Awaiting transferred to higher level of care for eventual coronary angiography and evaluation for aortic valve replacement and requirement of revascularization. Recommend appendage closure if surgical treatment is decided in level of care center. Patient has poor prognosis. Critical care time: 30 min. This medical document was created using an electronic medical record system with voice recognition software and computerized dictation system. Although this document has been carefully reviewed, there might still be some phonetic and typographical errors. Occasional wrong-word or ``sound-alike substitutions may have occurred due to the inherent limitations of voice recognition software. These areas are purely typographical due to imperfections of the software programs and do not reflect any compromise in the patient's medical care. Please read the chart carefully and recognize, using context, where these substitutions have occurred. Plan discussed with: Patient Date of Service: Jun 21, 2024 Billing Provider: CELESTINA HARMON MD Cardiology Common Codes: [id number] CARE 30-[address] [facility] Jun 21, 2024 09:18
--- NOTE | 2024-06-21 13:16 | DVHPN2 ---
Subjective Seen and examined at bedside, awaiting transfer to [facility] for TAVR still on 5L oxymizer Reviewed: Care Plan Changes from previous H/P or p: No Changes Eyes: No Pain, No Vision change, No Conjunctivae inflammation, No Eyelid inflammation, No Other, No Redness ENT: No Ear pain, No Ear discharge, No Nose pain, No Nose discharge, No Nose congestion, No Mouth pain, No Mouth swelling, No Throat pain, No Throat swelling, No Other Cardiovascular: No Chest Pain, No Palpitations, No Orthopnea, No Paroxysmal Noc. Dyspnea, No Edema, No Lt Headedness; Other (Pitting edema) Respiratory: No Dry; Shortness of breath; No Wheezing, No Hemoptysis, No Pleuritic Pain, No Sputum Gastrointestinal: No Nausea, No Vomiting, No Abdominal Pain, No Diarrhea, No Constipation, No Melena, No Hematochezia, No Other Genitourinary: No Dysuria, No Frequency, No Incontinence, No Hematuria, No Retention, No Other Musculoskeletal: No other, No neck pain, No shoulder pain, No arm pain, No back pain, No hand pain, No leg pain, No foot pain Skin: No Rash, No Lesions, No Jaundice, No Bruising, No Other Objective Vitals Vital Signs Date Time Temp Pulse Resp B/P (MAP) Pulse Ox O2 Delivery O2 Flow Rate FiO2 06/21/24 12:00 99.0 66 23 115/47 (69) 95 99.0 06/21/24 10:00 Oxymizer 5 N/A Intake/Output Intake and Output 06/21/24 07:00 Intake Total 350 ml Output Total 2950 ml Balance -2600 ml Intake Oral 300 ml IV Total 50 ml Output Urine Total 2950 ml # Voids 5 General Appearance: Alert, Oriented X3 HEENT: Atraumatic, PERRLA Chest/Breasts: Other (Creps b/l) Cardiovascular: Other (Aortic Stenosis) Abdomen: Normal bowel sounds, Soft Extremities: No edema Medications Current Medications Medications Dose Ordered Sig/Melecio Route Start Time Stop Time Status Last Admin Dose Admin Atorvastatin Calcium 20 mg HS PO 06/16/24 22:00 06/20/24 21:33 20 MG Hydralazine HCl 10 mg Q6HP PRN IV 06/16/24 21:00 Diagnostic Test (Pha) 1 strip ACHS 06/16/24 22:00 06/21/24 11:36 1 STRIP Insulin Human Regular ACHS SC 06/16/24 22:00 06/21/24 11:36 2 UNITS Dextrose 50 ml UD PRN IV 06/16/24 21:00 Sodium Chloride 10 ml Q8HR IV 06/16/24 22:00 06/21/24 05:43 10 ML Acetaminophen/ Hydrocodone Bitart 1 tab Q4HP PRN PO 06/16/24 21:00 06/21/24 09:30 1 TAB Ondansetron HCl 4 mg Q4HP PRN IV 06/16/24 21:00 Docusate Sodium 100 mg BIDPRN PRN PO 06/16/24 21:00 Acetaminophen 650 mg Q6HP PRN PO 06/16/24 21:00 Nitroglycerin 0.4 mg Q5MINP PRN SL 06/16/24 23:15 Morphine Sulfate 2 mg Q30M PRN IV 06/16/24 23:15 Enoxaparin Sodium 100 mg Q12HR SC 06/17/24 22:00 06/21/24 09:39 100 MG Ceftriaxone Sodium 50 ml @ 100 mls/hr DAILY@09 IV 06/20/24 09:00 06/21/24 09:39 100 MLS/HR Sodium Chloride 10 ml QSHIFT@ IV 06/19/24 22:00 06/21/24 09:39 10 ML Furosemide 20 mg BIDD IV 06/21/24 18:00 Laboratory Results Laboratory Tests 06/21/24 04:37 Chemistry Test 06/21/24 04:37 Calcium Level 9.3 mg/dL (8.7-10.4) Magnesium Level 1.6 mg/dL (1.6-2.6) Cardiac Markers Test 06/21/24 04:37 B-Type Natriuretic Peptide 520.46 pg/mL (0-100) Urinalysis Test 06/16/24 19:00 Urine Color Colorless (Yellow) Urine Clarity Clear (Clear) Urine pH 6.5 (5.0-9.0) Urine Specific [place] 1.007 (1.001-1.035) Urine Protein Negative (Negative) Urine Ketones Negative (Negative) Urine Blood Negative /uL (Negative) Urine Nitrite Negative (Negative) Urine Bilirubin Negative (Negative) Urine Urobilinogen Normal mg/dL (Negative) Urine Leukocyte Esterase Negative /uL (Negative) Urine RBC 1 /hpf (0 - 3) Urine WBC 1 /hpf (0 - 3) Urine Squamous Epithelial Cells Few /hpf (<5) Urine Bacteria None seen /hpf (None Seen) Urine Glucose Normal mg/dL (Normal) Microbiology Microbiology Date/Time Source Procedure Growth Status 06/20/24 15:47 Sputum Gram Stain - Final Resulted 06/20/24 15:47 Sputum Respiratory Culture - Preliminary Resulted Assessment/Plan Assessment/Plan Acute Systolic Congestive heart failure with exacerbation-Lasix Acute respiratory failure- On 10L Oxymizer Pulmonary edema Atrial flutter Critical aortic valve stenosis, newly diagnosed- Transfer to [facility] Plan discussed with: Patient My Orders Orders - ELVIA HERNÁNDEZ MD Procedure Category Date Status Time Respiratory Culture ACACIA 06/20/24 In Process W/ Gs 15:38 Date of Service: Jun 21, 2024 Billing Provider: ELVIA HERNÁNDEZ MD Common Visit Codes: [id number] INP/OBS CARE(HIGH) ELVIA HERNÁNDEZ MD Jun 21, 2024 13:16
[2024-06-21] MEDS: FUROSEMIDE 20 MG/2 ML VIAL IV SCH (18:16)
== END 2024-06-21 23:50 | disposition short-term general hospital (02) | DRG 291 ==
LOC: EDBD 17:21 → ER 17:21 → TELE 23:06 → TELE-CENTR 06-18 14:18 → DOU IN ICU 06-18 18:12
PROVIDERS: ADMIT Nurse Practitioner Family; ATTEND Internal Medicine
PROC: 5A09357 Assistance with Respiratory Ventilation, Less than 24 Consecutive Hours, Continuous Positive Airway Pressure (ICD-10-PCS; principal; 2024-06-16)
PROC: 5A09357 Assistance with Respiratory Ventilation, Less than 24 Consecutive Hours, Continuous Positive Airway Pressure (ICD-10-PCS; 2024-06-17)
PROC: 5A09357 Assistance with Respiratory Ventilation, Less than 24 Consecutive Hours, Continuous Positive Airway Pressure (ICD-10-PCS; 2024-06-18)
PROC: 5A09357 Assistance with Respiratory Ventilation, Less than 24 Consecutive Hours, Continuous Positive Airway Pressure (ICD-10-PCS; 2024-06-19)
PROC: 02HV33Z Insertion of Infusion Device into Superior Vena Cava, Percutaneous Approach (ICD-10-PCS; 2024-06-19)
PROC: B548ZZA Ultrasonography of Superior Vena Cava, Guidance (ICD-10-PCS; 2024-06-19)
DX: I11.0 Hypertensive heart disease with heart failure (principal); I50.23 Acute on chronic systolic (congestive) heart failure; J96.01 Acute respiratory failure with hypoxia; I69.354 Hemiplegia and hemiparesis following cerebral infarction affecting left non-dominant side; J98.11 Atelectasis; I48.92 Unspecified atrial flutter; Z20.822 Contact with and (suspected) exposure to COVID-19; I42.0 Dilated cardiomyopathy; E11.9 Type 2 diabetes mellitus without complications; E66.9 Obesity, unspecified; E78.5 Hyperlipidemia, unspecified; I25.10 Atherosclerotic heart disease of native coronary artery without angina pectoris; N40.0 Benign prostatic hyperplasia without lower urinary tract symptoms; I45.10 Unspecified right bundle-branch block; I35.0 Nonrheumatic aortic (valve) stenosis; I27.20 Pulmonary hypertension, unspecified; Z68.33 Body mass index [BMI] 33.0-33.9, adult; Z99.3 Dependence on wheelchair; Z79.84 Long term (current) use of oral hypoglycemic drugs; Z79.01 Long term (current) use of anticoagulants; Z87.891 Personal history of nicotine dependence; G47.33 Obstructive sleep apnea (adult) (pediatric)
CPT/HCPCS: 36415; 36569; 36600; 71045; 80048; 80053; 80061; 81001; 82805; 82962; 83036; 83735; 83880; 84443; 84484; 85025; 85610; 85730; 87070; 87081; 87205; 87426; 87804; 93005; 93306; 93970; 94640; 94660; 99291; G0378; J1815; J1885; J2405